=== PATIENT | male | born 1935 | race Asian ===

== ENCOUNTER 2016-11-24 19:30 | Emergency (ER) | payer MEDICARE ==
[2016-02-13 13:47] VITALS: BMI 19.1
[~2016-11-24 19:30] MED LIST: ASPIRIN325 MG PO; BISCODYL PO; CASODEX50 MG PO; COLACE100 MG PO; CORDARONE200 MG PO; FLOMAX0.4 MG PO; LANOXIN125 MCG PO; MELATONIN 3 MG1 TAB PO; NICODERM C1 PATCH .1 TRANSDERM; REMERON15 MG PO; ULTRAM50 MG PO
== END 2016-11-24 22:16 | disposition home or self-care (01) ==
LOC: D.ER 19:30
DX: S41.111A Laceration without foreign body of right upper arm, initial encounter (principal); W19.XXXA Unspecified fall, initial encounter; Y93.89 Activity, other specified; Y92.122 Bedroom in nursing home as the place of occurrence of the external cause; S00.03XA Contusion of scalp, initial encounter; S40.811A Abrasion of right upper arm, initial encounter; R41.82 Altered mental status, unspecified; Z86.73 Personal history of transient ischemic attack (TIA), and cerebral infarction without residual deficits; Z85.46 Personal history of malignant neoplasm of prostate; I95.9 Hypotension, unspecified; I44.0 Atrioventricular block, first degree; I45.10 Unspecified right bundle-branch block

== ENCOUNTER → 2017-02-11 13:42 | Outpatient (CLI) | payer MEDICARE ==
[2016-02-13 13:47] VITALS: BMI 19.1
== END | disposition home or self-care (01) ==
LOC: D.CT 13:42
DX: S80.922A Unspecified superficial injury of left lower leg, initial encounter (principal); S80.921A Unspecified superficial injury of right lower leg, initial encounter

== ENCOUNTER 2017-02-16 15:07 | Inpatient (IN) | payer MEDICARE ==
[~2017-02-16] VITALS: Ht 172.7 cm; Wt 57.7 kg
--- NOTE | ~2017-02-16 | HEMODYNAMI ---
PATIENT:LAMBERTO MORA MEDICAL RECORD: [id number] : 39 LOCATION:[facility] ADMISSION DATE: 02/16/17 Generatedon:02/17/201717:43 Patient name: LAMBERTO MORA Patient #: [id number] SSN : : 1935 Date of study: 02/17/2017 Page: Of Hemodynamic Procedure Report Patient Data Patient Demographics Procedure consent was obtained First Name: LAMBERTO Gender: Male Last Name: MORGAN : 1935 Patient #: [id number] Age: 82 year(s) Race: Additional ID: [id number] Contact details [address]: [address] [place] [address] State: [place] City: [place] Zip code: [address] Admission Admission Data Admission Date: 02/16/2017 Admission Time: 15:07 Room #: D.2203 Procedure Procedure Types Cath Procedure Peripheral Cath Diagnostic Procedure Miscellaneous Procedure Description Procedure Date Procedure Date: 02/17/2017 Procedure Start Time: 15:05 Procedure Staff Name Function Devon Frazier RT Scrub Devon Frazier RT Monitor Jose Antonio Christy MD Performing Physician Margarita Torres RN Nurse Sheryl Gooden RT Monitor Procedure Data Cath Procedure Fluoroscopy Diagnostic fluoroscopy Total fluoroscopy Time: time: 32.1 min 32.1 min Diagnostic fluoroscopy Total fluoroscopy dose: 196 dose: 196 mGy mGy Contrast Material Contrast Material Type Amount (ml) Isovue 300 85 Entry Location Entry Primary Successful Side Size Upsize 1 Upsize Entry Closure Bowden ccessful Closure Location (Fr) (Fr) 2 (Fr) Remarks Device Remarks Femoral Right 5 Fr 6 Fr artery Mid-Length Femoral Left Exoseal artery Diagnostic catheters Device Type Used For End Catheter Placement Diagnostic 5Fr IMT Catheter Procedure Medications Medication Administration Route Dosage Fentanyl I.V. 50 mcg Fentanyl I.V. 50 mcg Versed I.V. 1 mg Versed I.V. 1 mg Fentanyl I.V. 50 mcg Fentanyl I.V. 50 mcg Heparin Bolus I.V. 3000 units Versed I.V. 1 mg Nitroglycerin IC/IA I.A. 300 mcg Fentanyl I.V. 50 mcg Versed I.V. 1 mg Heparin Bolus I.V. 2000 units Hydralizine I.V. 10 mg Fentanyl I.V. 50 mcg Hemodynamics Rest Heart Rate: 65 (bpm) Snapshots Pre Cath Intra NCS Post Cath Vital Signs Time Heart Resp SPO2 NIBP (mmHg) Rhythm Pain Status Sedation Rate (ipm) (%) Level (bpm) 14:45:35 72 14 98 148/73(118) NSR 5 (11) , 10(A) Very distressing 14:52:47 66 15 97 160/71(116) NSR 5 (11) , 10(A) Very distressing 14:57:07 67 10 98 152/67(114) NSR 5 (11) , 10(A) Very distressing 15:01:26 66 11 98 152/67(117) NSR 5 (11) , 10(A) Very distressing 15:05:44 65 14 98 155/68(121) NSR 4 (11) , 10(A) Distressing 15:10:01 67 18 98 159/70(120) NSR 0 (11) , No 9(A) pain 15:14:22 67 16 99 171/67(118) NSR 0 (11) , No 9(A) pain 15:18:42 70 16 96 159/80(127) NSR 0 (11) , No 9(A) pain 15:23:41 70 14 96 Measuring NSR 0 (11) , No 9(A) pain 15:23:59 71 13 98 191/87(138) NSR 0 (11) , No 9(A) pain 15:28:27 72 13 96 193/80(133) NSR 0 (11) , No 9(A) pain 15:32:52 93 13 97 201/92(133) NSR 0 (11) , No 9(A) pain 15:37:18 77 12 99 191/85(130) NSR 0 (11) , No 9(A) pain 15:41:46 76 13 96 177/79(130) NSR 0 (11) , No 9(A) pain 15:46:08 79 13 97 190/82(123) NSR 0 (11) , No 9(A) pain 15:50:35 79 14 98 175/84(120) NSR 0 (11) , No 9(A) pain 15:54:55 120 14 99 180/85(130) NSR 0 (11) , No 9(A) pain 15:59:17 108 18 98 182/87(128) NSR 0 (11) , No 9(A) pain 16:03:39 89 18 98 182/86(151) NSR 0 (11) , No 9(A) pain 16:08:02 95 15 99 177/83(141) NSR 0 (11) , No 9(A) pain 16:12:24 94 18 98 178/81(143) NSR 0 (11) , No 9(A) pain 16:16:46 93 13 98 181/84(140) NSR 0 (11) , No 9(A) pain 16:21:06 109 18 98 169/90(123) NSR 0 (11) , No 9(A) pain 16:25:22 99 15 97 161/94(120) NSR 0 (11) , No 9(A) pain 16:29:34 100 14 96 175/93(127) NSR 0 (11) , No 9(A) pain 16:33:54 98 15 94 167/88(128) NSR 0 (11) , No 9(A) pain 16:38:08 118 15 96 186/92(132) NSR 0 (11) , No 9(A) pain 16:42:32 89 14 94 179/86(136) NSR 0 (11) , No 9(A) pain 16:46:50 93 14 91 195/98(137) NSR 0 (11) , No 9(A) pain 16:51:17 91 15 91 177/90(131) NSR 0 (11) , No 9(A) pain 16:55:37 104 13 93 187/87(131) NSR 0 (11) , No 9(A) pain 17:00:01 105 11 91 182/92(138) NSR 0 (11) , No 9(A) pain 17:04:23 92 14 88 175/90(135) NSR 0 (11) , No 9(A) pain 17:08:43 90 17 86 181/84(122) NSR 0 (11) , No 9(A) pain 17:13:05 89 13 94 184/88(156) NSR 0 (11) , No 9(A) pain 17:17:27 91 14 96 177/93(133) NSR 0 (11) , No 9(A) pain 17:21:46 90 12 95 188/95(126) NSR 0 (11) , No 9(A) pain 17:26:08 90 12 93 177/94(134) NSR 0 (11) , No 9(A) pain 17:30:28 93 14 95 177/86(129) NSR 0 (11) , No 9(A) pain 17:34:50 104 14 96 166/87(127) NSR 0 (11) , No 9(A) pain 17:39:06 122 10 98 167/87(137) NSR 0 (11) , No 9(A) pain Medications Time Medication Route Dose Verified Delivered Reason Notes Ef fectiveness by by 14:45:17 Fentanyl I.V. 50 Margarita Margarita for pain mcg Melissa Torres RN RN 15:00:33 Fentanyl I.V. 50 Margarita Margarita for sedation mcg Melissa Torres RN RN 15:00:43 Versed I.V. 1 mg Margarita Margarita for sedation Melissa Torres RN RN 15:05:57 Versed I.V. 1 mg Margarita Margarita for sedation Melissa Torres RN RN 15:15:55 Fentanyl I.V. 50 Margarita Margarita for sedation mcg Melissa Torres RN RN 15:20:13 Heparin Bolus I.V. 3000 Margarita Margarita for units Melissa tavares RN RN 15:25:48 Versed I.V. 1 mg Margarita Jose Antonio for sedation Melissa Christy RN, MD 15:25:51 Fentanyl I.V. 50 Margarita Margarita for sedation mcg Melissa Torres RN RN 16:05:42 Versed I.V. 1 mg Margarita Margarita for sedation Melissa Torres RN RN 16:19:31 Nitroglycerin I.A. 300 Margarita Jose Antonio IC/IA mcg Melissa Christy RN, MD 16:40:05 Fentanyl I.V. 50 Margarita Jose Antonio for sedation mcg Melissa Christy RN, MD 16:45:59 Heparin Bolus I.V. 2000 Margarita Jose Antonio for units Melissa Christy anticoagulation RANGEL JAY 16:50:16 Fentanyl I.V. 50 Margarita Margarita for sedation mcg Melissa Torres RN, RN 17:29:07 Hydralizine I.V. 10 mg Margarita Margarita for elevated Melissa Torres blood pressure RN microarray operations vice president Log Time Note 14:24:07 Devon Frazier RT (R) (CV) sent for patient. Start room use. 14:24:26 Time tracking: Regular hours 14:24:31 Plan of Care:Hemodynamics will remain stable., Cardiac rhythm will remain stable., Comfort level will be maintained., Respiratory function will remain adequate., Patient/ family verbilizes understanding of procedure., Procedure tolerated without complication., Recovers from procedure without complications.. 14:24:39 Patient received from Med/Surg to IR Alert and oriented. Tansferred to table in Supine position. 14:24:40 Correct patient and procedure confirmed by team. 14:24:42 Signed procedure consent form obtained from patient. 14:24:43 ECG and BP/O2 sat monitors applied to patient. 14:24:44 - 14:24:44 Full Disclosure recording started 14:24:47 H&P Date Dictated: 02/17/2017 H&P Addendum completed by physician on day of procedure. (MUST COMPLETE FOR ALL OUTPATIENTS). 14:24:48 Pre-procedure instructions explained to patient. 14:24:49 Pre-op teaching completed and patient verbalized understanding. 14:24:50 Family in waiting room. 14:24:52 Patient NPO since Midnight. 14:24:56 Is the patient allergic to Iodine/contrast media? No. 14:24:58 Is patient on blood thinner?No 14:24:59 Patient diabetic? No. 14:25:00 - 14:25:01 ----Pre-sedation anethsthesia assessment.---- 14:25:05 Previous problem with sedation/anesthesia? No ? 14:25:06 Snore? Yes 14:25:07 Sleep apnea? Yes 14:25:09 Deviated septum? No 14:25:11 Opens mouth fully? Yes 14:25:13 Sticks out tongue? Yes 14:25:18 Airway obstruction? No ? 14:25:20 Dentures? No ? 14:25:24 Use device set IR Diagnostic 14:25:26 Acist Syringe opened to sterile field. 14:25:27 Bag Decanter opened to sterile field. 14:25:27 Acist Manifold opened to sterile field. 14:25:27 Acist Hand Control opened to sterile field. 14:25:28 Sterile Angiographic Pack opened to sterile field. 14:36:49 Pre procedure: right dorsailis pedis pulse Doppler 14:36:56 Patient pain scale 6/10 no pain. 14:37:02 Pre procedure: left dorsailis pedis pulse Doppler 14:37:18 Pre procedure: right posterior tibial pulse Doppler 14:37:28 Pre procedure: left posterior tibial pulse None 14:37:37 IV patent on arrival in left forearm with 0.9% NaCl at [facility]. 14:37:38 Alarms reviewed by R. N. 14:37:38 Sharps counted by scrub and verified by R.N. 14:37:42 Bilateral groins area was prepped with chlora-prep and draped in steril e fashion 14:45:17 Fentanyl 50 mcg I.V. was administered by Margarita Torres RN; for pain; 14:50:19 Cook CERVANTES 260 guide wire opened to sterile field. 14:52:16 Vital chart was started 14:52:17 Baseline sample Acquired. 14:52:20 Rhythm: sinus rhythm 14:57:01 --------ALL STOP TIME OUT------ 14:57:01 Physician arrived 14:57:02 Final Timeout: patient, procedure, and site verified with staff and physician. All members of the team are in agreement. 14:57:04 Bilateral groins site verified by team. 14:57:07 Physical assessment completed. ASA score P 3 - A patient with severe systemic disease as per Jose Antonio Christy MD. 14:57:11 Sedation plan: IV Moderate Sedation Versed, Fentanyl 15:00:33 Fentanyl 50 mcg I.V. was administered by Margarita Torres RN; for sedation; 15:00:43 Versed 1 mg I.V. was administered by Margarita Torres RN; for sedation; 15:05:22 Procedure started. 15:05:28 Local anesthetic to left femerol artery with Lidocaine 1% by Jose Antonio Christy MD.INITIAL ACCESS ONLY 15:05:57 Versed 1 mg I.V. was administered by Margarita Torres RN; for sedation; 15:10:17 Terumo 5Fr [place] Sheath opened to sterile field. 15:10:18 Cook BENTSON 145cm guide wire opened to sterile field. 15:10:19 Micropuncture VSI 4FR kit opened to sterile field. 15:10:22 A Diagnostic 5Fr IMT Catheter was advanced over the wire and used for . 15:10:[address] 260 .035 glide wire opened to sterile field. 15:11:29 Terumo 6Fr [place] Destination Sheath opened to sterile field. 15:11:39 A 5 Fr sheath was inserted into the Right Femoral artery 15:14:10 Sheath upsized to a 6 Fr Mid-Length. 15:14:41 CXI SUPPORT .035 135 CM STR catheter opened to sterile field. 15:15:55 Fentanyl 50 mcg I.V. was administered by Margarita Torres RN; for sedation; 15:20:13 Heparin Bolus 3000 units I.V. was administered by Margarita Torres RN; for anticoagulation; 15:25:48 Versed 1 mg I.V. was administered by Jose Antonio Christy MD; for sedation; 15:25:51 Fentanyl 50 mcg I.V. was administered by Margarita Torres RN; for sedation; 15:27:41 Terumo ANGLE 260cm glide wire opened to sterile field. 15:34:51 [place] Sci Choice PT Floppy Straight 300cm 0.014 g opened to sterile field. 15:41:21 CSI [place] wire 300cm opened to sterile field. 15:41:31 CXI SUPPORT .018 150CM STR catheter opened to sterile field. 15:56:43 Inflation number: 1 A Saber 2.5 X 200 X 150 balloon was prepped and advanced across the Undefined lesion 1 on undefined graft 1, then inflated to 18 MANISH for 0:11 (min:sec). 15:57:07 BasixTOUCH Inflation Syringe opened to sterile field. 16:00:56 Copilot Bleedback Control Valve opened to sterile field. 16:05:42 Versed 1 mg I.V. was administered by Margarita Torres RN; for sedation; 16:07:56 Inflation number: 1 A Saber 2 x 150 x150 balloon was prepped and advanced across the Undefined lesion 2 on undefined graft 2, then inflated to 15 MANISH for 0:15 (min:sec). 16:10:32 Turbohawk 1 Large Atherectomy catheter opened to sterile field. 16:19:31 Nitroglycerin IC/IA 300 mcg I.A. was administered by Jose Antonio Christy MD; ; 16:40:05 Fentanyl 50 mcg I.V. was administered by Jose Antonio Christy MD; for sedation; 16:45:59 Heparin Bolus 2000 units I.V. was administered by Jose Antonio Christy MD; fo r anticoagulation; 16:48:23 Inflation number: 1 A IN.PACT Admiral 5 x 150 balloon was prepped and advanced across the Undefined lesion 3 on undefined graft 3, then inflated to 6 MANISH for 3:29 (min:sec). 16:50:16 Fentanyl 50 mcg I.V. was administered by Margarita Torres RN; for sedation; 16:55:08 Inflation number: 1 A IN.PACT Admiral 6 x 150 balloon was prepped and advanced across the Undefined lesion 4 on undefined graft 4, then inflated to 14 MANISH for 3:30 (min:sec). 17:00:37 Inflation number: 1 A IN.PACT Admiral 6.0 x 80 x 135 DCB Balloon was prepped and advanced across the Undefined lesion 5 on undefined graft 5, then inflated to 14 MANISH for 2:51 (min:sec). 17:01:31 St [place] 6Fr sheath opened to sterile field. 17:01:54 Cordis 6Fr Exoseal opened to sterile field. 17:17:51 Cordis SMART 6 X 40 X 120 stent was deployed across Undefined lesion 4 on undefined graft 4 . 17:18:45 Cordis SMART 6 X 40 X 120 stent was deployed across Undefined lesion 5 on undefined graft 5 . 17:24:21 Sheath removed intact; hemostasis achieved with Exoseal to the Left Femoral artery. 17:24:21 A sheath was inserted into the Left Femoral artery 17:24:37 Procedure ended.(Physican Out) 17:24:44 Fluoroscopy time 32.10 minutes. 17:24:50 Fluoroscopy dose: 196 mGy 17:24:50 Flurop Dose total: 196 17:25:11 Contrast amount:Isovue 300 85ml. 17:25:13 Sharps counted by scrub and verified by R.N. 17:25:16 Procedure and supply charges have been captured, reviewed, submitted an d are correct. 17:29:07 Hydralizine 10 mg I.V. was administered by Margarita Torres RN; for elevated blood pressure; 17:41:41 Full Disclosure recording stopped Intervention Summary Intervention Notes Time ActionType Lesion and Equipment Action# Pressure Duration Attributes Used 15:56:43 Inflate Undefined Saber 2.5 1 18 00:11 balloon lesion 1 on X 200 X undefined 150 graft 1 balloon 16:07:56 Inflate Undefined Saber 2 x 1 15 00:15 balloon lesion 2 on 150 x150 undefined balloon graft 2 16:48:23 Inflate Undefined IN.PACT 1 6 03:29 balloon lesion 3 on Admiral 5 undefined x 150 graft 3 balloon 16:55:08 Inflate Undefined IN.PACT 1 14 03:30 balloon lesion 4 on Admiral 6 undefined x 150 graft 4 balloon 17:00:37 Inflate Undefined IN.PACT 1 14 02:51 balloon lesion 5 on Admiral undefined 6.0 x 80 graft 5 x 135 DCB Balloon 17:17:51 Deploy self Undefined Cordis 1 expanding lesion 4 on SMART 6 X stent undefined 40 X 120 graft 4 stent 17:18:45 Deploy self Undefined Cordis 1 expanding lesion 5 on SMART 6 X stent undefined 40 X 120 graft 5 stent Device Usage Item Name Manufacture Quantity Catalog Number Hospital Part Current Minimal Lot# / Charge Number Stock Stock Serial# Code Acist Syringe Acist Medical 1 76438 017991 801939 700881 20 Systems Inc Acist Hand Acist Medical 1 93638 080256 401284 066248 5 Control Systems Inc Acist Acist Medical 1 61748 562669 200149 432781 5 Manifold Systems Inc Bag Decanter Microtek 1 2002S 1929453 25435 817894 5 Medical Inc. Sterile Cardinal 1 [id number] 009251 972410 5 Angiographic Health Pack Terumo 5Fr Terumo 1 EZH907 288195 640573 876809 40 [place] Sheath Cook [facility] 1 R05346 524416 914527 5 5522419 145cm guide wire [facility] 1 B98706 800337 710712 5 [id number] 260 guide wire Micropuncture VSI VASCULAR 1 7266V 083604 352198 5 VSI 4FR kit SOLUTIONS Diagnostic [place] 1 [id number] 663121 752813 98200 5 [id number] 5Fr IMT Scientific Catheter [facility] 1 R93254 540895 635497 5 [id number] ROADRUNNER 260 .035 glide wire Terumo 6Fr Terumo 1 RSR01 049429 84389 158066 5 [place] Destination Sheath CXI SUPPORT [facility] 1 O11191 334972 555565 5 4600602 .035 135 CM STR catheter Terumo ANGLE Terumo 1 PF3541 740957 789326 864684 5 260cm glide wire [place] Sci [place] 1 [id number] 135759 252928 625015 5 Choice PT Scientific Floppy Straight 300cm 0.014 g CSI [place] [facility] 1 [id number] 568054 812380 1 [id number] wire 300cm systems CXI SUPPORT [facility] 1 B93861 501189 872712 5 [id number] .018 150CM STR catheter Saber 2.5 X Cardinal 1 [id number] 410368 243893 5 200 X 150 Health balloon [facility] 1 QF0686 908417 016232 294488 5 Inflation Syringe Copilot [place] 1 1509579 709627 588933 704751 5 Bleedback Vascular Control Valve Saber 2 x 150 Cardinal 1 [id number] 140954 029009 5 x150 balloon Health T[place] 1 Ev3 1 H1-M 789088 843315 909070 5 Large Atherectomy catheter IN.PACT Medtronic 1 [id number] 976173 9213703 283128 5 [id number] Admiral 5 x 150 balloon IN.PACT Medtronic 1 [id number] 092983 5269252 713561 5 [id number] Admiral 6 x 150 balloon IN.PACT Medtronic 1 [id number] 317111 112616 604003 5 [id number] Admiral 6.0 x 80 x [address] [place] [address] [facility] [place] 1 702240 750408 257920 5 0501447 sheath Cordis 6Fr Cardinal 1 EX600 727169 225269 153753 10 [id number] [facility] 2GO Mobile Solutions Cordis SMART Cardinal 2 [id number] 022920 966655 0 [id number] 6 X 40 X 120 Health [id number] stent Signature Audit [place] Stage Time Signature Unsigned Intra-Procedure 02/17/2017 Sheryl Gooden 5:43:22 PM RT(R) Signatures Monitor : Devon Signature : Freddie RT Date : Time : Monitor : Sheryl Gooden RT Signature : Date : Time : [address] [address]
--- NOTE | 2017-02-16 15:45 | NUR ---
PT AOX1 RESP EVEN AND NONLABORED PT C/O PAIN OF 9 IN RIGHT ANKLE AT THIS TIME. PT AT BEDSIDE. SRX2 BED AT LOWEST SETTING CALL LIGHT WITHIN REACH WILL CONTINUE TO MONITOR
[2017-02-16 15:55] VITALS: BP 150/94; BMI 19.2
[2017-02-16] MEDS ORDERED: SYNTHROID25 MCG PO (16:00)
[2017-02-16] MEDS ORDERED: MEGACE400 MG/10 PO (16:00)
[2017-02-16] MEDS ORDERED: MIRALAX17 GM PO (16:02)
[2017-02-16] MEDS ORDERED: MULTIPLE VITAMI1 TA1 PO (16:02)
[2017-02-16] MEDS ORDERED: COLACE100 MG PO (16:06)
[2017-02-16] MEDS ORDERED: ULTRAM50 MG PO (16:08)
[2017-02-16 17:05] LABS: APPEARANCE CLEAR (CLEAR); BILIRUBIN NEGATIVE (NEGATIVE); COLOR DK YELLOW (YELLOW); GLUCOSE NEGATIVE (NEGATIVE); KETONE NEGATIVE (NEGATIVE); LEUKOCYTE ESTERASE TRACE (NEGATIVE); NITRITE POSITIVE (NEGATIVE); PROTEIN NEGATIVE (NEGATIVE); SPECIFIC GRAVITY 1.015 (1.005-1.020); UROBILINOGEN NORMAL (NORMAL)
[2017-02-16 17:06] LABS: BACTERIA MANY /hpf (NONE SEEN)
[2017-02-16 17:15] LABS: BASOPHILS 0.1 % (0-2); EOSINOPHILS 0.8 % (0-7); HEMATOCRIT 31.2 % (42.0-54.0); HEMOGLOBIN 9.7 g/dL (13.5-17.5); IMMATURE GRANULOCYTES 0.5 % (0-5); LYMPHOCYTES 8.3 % (15-50); MCH 29.8 pg (26.0-34.0); MCHC 31.1 g/dL (31.0-37.0); MEAN PLATELET VOLUME 8.7 fL (7.4-10.4); NEUTROPHILS 85.3 % (40-80); RBC 3.25 10x6/uL (4.20-6.10); WBC 15.5 10x3/uL (4.8-10.8)
[2017-02-16 17:28] LABS: PLATELET COUNT 333 10x3/uL (130-400)
[2017-02-16 17:30] LABS: ALBUMIN 2.8 g/dL (3.4-5.0); ANION GAP 14.5 mmol/L (8-16); BILIRUBIN - TOTAL 0.35 mg/dL (0.2-1.3); CARBON DIOXIDE 23.6 mmol/L (21.0-32.0); CREATININE - SERUM 1.2 mg/dL (0.6-1.3); POTASSIUM - SERUM 4.1 mmol/L (3.5-5.1); PROTEIN - SERUM 6.8 g/dL (6.4-8.2)
[2017-02-16 18:11] LABS: INR 1.08 (0.85-1.17); PROTIME 13.9 SECONDS (11.6-15.0)
[2017-02-16 19:00] VITALS: BP 123/60
--- NOTE | 2017-02-16 19:33 | NUR ---
PT HAS A 24 G. IV TO LEFT WRIST PATENT AND INTACT AT THIS TIME
--- NOTE | 2017-02-16 20:41 | NUR ---
SHIFT ASSESSMENT COMPLETED. NIGHT MEDS GIVEN WITH NO PROBLEMS. NO NEEDS ARE VOICED. WILL MONITOR. SIDE RAILS X 2. BED LOW. BED ALARM ON. CALL LIGHT IN REACH.
--- NOTE | 2017-02-16 20:41 | NUR ---
RECIEVED SHIFT REPORT. PT IS LYING IN BED. PT IS ALERT TO SELF ONLY AT THIS TIME. IV IS PATENT AND SALINE LOC AT THIS TIME. SCD'S PLACED ON. DRESSING TO RIGHT FOOT C/D/I. PT STATES PAIN IS 5/10. NO NEEDS ARE VERBALIZED AT THIS TIME. WILL CONTINUE TO MONITOR. SIDE RAILS ARE UP X 2. BED IS IN LOWEST POSITION. BED ALARM IS ON FOR SAFETY. CALL LIGHT IS WITHIN REACH.
[2017-02-17] VITALS: BP 148/64; BP 153/61
[2017-02-17 04:00] VITALS: BP 149/66
[2017-02-17 05:48] LABS: BASOPHILS 0.2 % (0-2); HEMOGLOBIN 8.9 g/dL (13.5-17.5); IMMATURE GRANULOCYTES 0.2 % (0-5); LYMPHOCYTES 9.7 % (15-50); MCH 30.4 pg (26.0-34.0); MCHC 31.8 g/dL (31.0-37.0); MCV 95.6 fL (80.0-100.0); MEAN PLATELET VOLUME 8.6 fL (7.4-10.4); NEUTROPHILS 84.9 % (40-80); PLATELET COUNT 309 10x3/uL (130-400); RBC 2.93 10x6/uL (4.20-6.10); RDW 16.1 % (11.5-14.5); WBC 13.4 10x3/uL (4.8-10.8)
[2017-02-17 06:09] LABS: ALBUMIN 2.3 g/dL (3.4-5.0); ALKALINE PHOSPHATASE 85 U/L (46-116); ALT (SGPT) 14 U/L (10-68); BILIRUBIN - TOTAL 0.38 mg/dL (0.2-1.3); CALC OSMOLALITY 276 mosm/kg (275-300); CALCIUM 7.9 mg/dL (8.5-10.1); CHLORIDE - SERUM 105 mmol/L (98-107); GLUCOSE 89 mg/dL (74-106); POTASSIUM - SERUM 3.9 mmol/L (3.5-5.1); PROTEIN - SERUM 6.4 g/dL (6.4-8.2); SODIUM 138 mmol/L (136-145); UREA NITROGEN 17 mg/dL (7-18); eGFR NON AFRICAN AMERICAN 76 mL/min (90-120)
--- NOTE | 2017-02-17 07:43 | NUR ---
PT CONFUSED AT TIMES IV TO LEFT WRIST PATENT AND INTACT AT THIS TIME SRX2 BED AT LOWEST SETTING CALL LIGHT WITHIN REACH WILL CONTINUE TO MONITOR
[2017-02-17 08:00] VITALS: BP 139/52
[2017-02-17 13:08] VITALS: Ht 172.7 cm; Wt 57.7 kg
--- NOTE | 2017-02-17 18:22 | NUR ---
RECEIVED PT FROM SPECIALS WITH PT TRYING TO CLIMB OUT OF BED. PT INSTRUCTED TO LAY FLAT DRESSING TO LEFT GROIN CLEAN DRY AND INTACT AT THIS TIME WILL MONITOR
--- NOTE | 2017-02-17 19:25 | NUR ---
RECIEVED SHIFT REPORT. PT IS LYING FLAT IN BED. PT IS CONFUSED AT THIS TIME. SCD'S ARE OFF AT THIS TIME. DRESSING TO LEFT GROIN C/D/I. IV IS PATENT AND FLUIDS ARE RUNNING PER ORDER. PT SHOWS SIGNS OF PAIN 02/10. IS AT THE BEDSIDE. WILL CONTINUE TO MONITOR. SIDE RAILS ARE UP X 3. BED IS IN LOWEST POSITION. BED ALARM IS ON FOR SAFETY. CALL LIGHT IS WITHIN REACH.
[2017-02-17 20:00] VITALS: BP 166/71
--- NOTE | 2017-02-17 21:53 | NUR ---
SHIFT ASSESSMENT COMPLETED. NIGHT MEDS GIVEN CRUSHED WITH ASPIRATION PRECAUTIONS IN PLACE WITH NO PROBLEMS. ADMINISTERED PRESCRIBED PRN NORCO 2 TABS PER ORDER FOR PAIN 02/10 LYN PICHARDO. VISITOR IS AT THE BEDSIDE. WILL MONITOR. SIDE RAILS X 3. BED LOW. BED ALARM ON. CALL LIGHT IN REACH.
[2017-02-18] VITALS: BP 186/69
--- NOTE | 2017-02-18 00:50 | NUR ---
LYING IN BED,WITHOUT DISTRESS.FALL PREVENTION IN PLACE WITH ALARM ON AND DOOR OPEN
--- NOTE | 2017-02-18 02:59 | NUR ---
STILL YELLING OUT IN PAIN.STATES HE HAS TO TINCKLE AND IT HURT. 178ML WITH BLADDER SCAN.ALSO BED CHANGE AT THIS TIME PT INCONTINENT TO URINE.MEDS ORDERED PER MAR FOR PAIN.FALL PREVENTION REMAINS IN PLACE WITH DOOR OPEN.
[2017-02-18 04:00] VITALS: BP 148/67
[2017-02-18 05:59] LABS: BASOPHILS 0.2 % (0-2); EOSINOPHILS 0.1 % (0-7); IMMATURE GRANULOCYTES 0.6 % (0-5); LYMPHOCYTES 4.3 % (15-50); MCH 29.5 pg (26.0-34.0); MCV 95.2 fL (80.0-100.0); MEAN PLATELET VOLUME 8.7 fL (7.4-10.4); MONOCYTES 3.5 % (2-11); NEUTROPHILS 91.3 % (40-80); PLATELET COUNT 312 10x3/uL (130-400); WBC 10.7 10x3/uL (4.8-10.8)
[2017-02-18 06:02] LABS: HEMATOCRIT 35.5 % (42.0-54.0); RBC 3.73 10x6/uL (4.20-6.10)
[2017-02-18 06:12] LABS: ALBUMIN 2.6 g/dL (3.4-5.0); ANION GAP 13.4 mmol/L (8-16); BILIRUBIN - TOTAL 0.85 mg/dL (0.2-1.3); CALCIUM 8.4 mg/dL (8.5-10.1); CARBON DIOXIDE 23.8 mmol/L (21.0-32.0); POTASSIUM - SERUM 4.2 mmol/L (3.5-5.1); PROTEIN - SERUM 7.2 g/dL (6.4-8.2)
--- NOTE | 2017-02-18 06:26 | NUR ---
STILL AWAKE,HASNT SLEPT ALL NIGHT.PT HAS BEEN YELLING OUT MOST OF NIGHT FOR HIS .STILL COMPLAINS OF PAIN TO HIS RIGHT ANKLE AND HIS GROIN. MEDS ORDERED PER MAR.CONT PLAN OF CARE
[2017-02-18 06:34] LABS: CREATININE - SERUM 1.3 mg/dL (0.6-1.3)
--- NOTE | 2017-02-18 07:30 | NUR ---
RECIEVED PT DURING WALKING ROUNDS, PT IN BED WITH COMPLAINTS OF PAIN OF A 8 ON A SCALE OF 1-10. NO MEDICATION TO BE GIVEN AT THIS TIME. ASSESSMENT DONE PER FLOWSHEET. BED IN LOW POSITION AND CALL LIGHT WITHIN REACH. WILL CONTINUE TO MONITOR.
[2017-02-18 09:35] VITALS: BP 119/63
--- NOTE | 2017-02-18 11:15 | NUR ---
MORPHINE GIVEN AT THIS TIME PER ORDER, PT PEEING SMALL AMOUNTS UP TO THIS POINT, WAS INSTRUCTED BY NURSE PRACTIONIER TO BLADDER SCAN PT AND PLACE CARBAJAL IF PT IS EXPERIENCING RETENTION. WILL CONTINUE PLAN OF CARE.
[2017-02-18 12:46] VITALS: BP 120/64
--- NOTE | 2017-02-18 13:45 | NUR ---
BLADDER SCANNED AT THIS TIME, READING WAS 999+, COUDUIT CATH PLACED AT THIS TIME USING STERILE TECHNIQUE. PT STATED HE FELT RELIEF. BED IN LOW POSITION AND CALL LIGHT WITHIN REACH. WILL CONTINUE TO MONITOR.
[2017-02-18 16:29] VITALS: BP 166/68
--- NOTE | 2017-02-18 19:50 | NUR ---
PATIENT RESTING IN BED WITH EYES CLOSED AND NO VISIBLE SIGNS OF DISTRESS. BED IN LOWEST POSITION AND CALL LIGHT WITHIN REACH. BED IN LOWEST POSITION, CALL LIGHT WITHIN REACH, AND BED ALARM ON.
[2017-02-18 20:00] VITALS: BP 150/71
[2017-02-19 00:10] VITALS: BP 125/50
[2017-02-19 04:00] VITALS: BP 104/52
--- NOTE | 2017-02-19 07:30 | NUR ---
RECIEVED PT DURING WALKING ROUNDS. PT IN BED WITH COMPLAINTS OF PAIN OF A 10 ON A SCALE OF 1-10. MEDICATION TO BE GIVEN PER ORDER. ASSESSMENT DONE PER FLOWSHEET. BED IN LOW POSITION AND CALL LIGHT WITHIN REACH. WILL CONTINUE TO MONITOR.
[2017-02-19 09:10] LABS: BASOPHILS 0.1 % (0-2); EOSINOPHILS 0.2 % (0-7); HEMATOCRIT 32.4 % (42.0-54.0); IMMATURE GRANULOCYTES 0.3 % (0-5); LYMPHOCYTES 9.9 % (15-50); MCH 29.5 pg (26.0-34.0); MCHC 30.9 g/dL (31.0-37.0); MCV 95.6 fL (80.0-100.0); MEAN PLATELET VOLUME 9.1 fL (7.4-10.4); MONOCYTES 5.7 % (2-11); NEUTROPHILS 83.8 % (40-80); PLATELET COUNT 254 10x3/uL (130-400); RBC 3.39 10x6/uL (4.20-6.10); RDW 16.1 % (11.5-14.5)
[2017-02-19 10:19] VITALS: BP 152/70
--- NOTE | 2017-02-19 11:00 | NUR ---
HEEL PROTECTOR PLACED AT THIS TIME PER ORDER
[2017-02-19 11:54] LABS: ANION GAP 14.9 mmol/L (8-16); CALCIUM 8.2 mg/dL (8.5-10.1); CARBON DIOXIDE 24.7 mmol/L (21.0-32.0); CREATININE - SERUM 1.2 mg/dL (0.6-1.3); POTASSIUM - SERUM 4.6 mmol/L (3.5-5.1)
--- NOTE | 2017-02-19 12:18 | HP ---
PATIENT: LAMBERTO MORA MEDICAL RECORD: [id number] ACCOUNT: [id number] LOCATION:D.[facility] [address] : 37 ADMISSION DATE: 02/16/17 HISTORY AND PHYSICAL EXAMINATION LAMBERTO Winkler (82yo, M) ID# [id number]. Date/Time02/16/2017 02:[id number] Dept.NPP_[facility] ClinicProviAntoinette PERES MDInsuranceMed Primary[place] Insurance # : [id number] Referring Provider Name : RAMON OCONNELL Employer Name : RETIRED Med Secondary[place] Insurance # : [id number] Employer Name : RETIRED Med Contracts: [facility] Insurance # : [id number] Referring Provider Name : RAMON OCONNELL Employer Name : RETIRED Prescription: CMX - Member is eligible. Prescription: [employer] [employer] - Member is eligible. Chief Complaint PVD - peripheral vascular disease non healing wounds to RLE, buckle inspector recommended CV evaluation for vascular disease Patient's Care Team Referring Provider (): RAMON OCONNELL: [address], [place] [address], , Vitals BP:118/64 sitting L arm 02/16/2017 02:10 pmBP Cuff Size:adult 02/16/2017 02:10 pmHR:76,reg 02/16/2017 02:10 pmHt:5 ft 8 in 02/16/2017 02:11 pmWt:25 lbs 02/16/2017 02:11 pmNotes:RLE with two existing ulcers and states two more forming 02/16/2017 02:11 pmBMI:3.8 02/16/2017 02:11 pmAllergies Reviewed Allergies ATIVANBEE VENOM PROTEIN (HONEY BEE)Medications Reviewed Medications amiodarone 200 mg /08/17 filledCaremarkaspirin 325 mg tablet Take 1 tablet(s) every day by oral route.02/11/17 enteredCindy Brownciprofloxacin 500 mg jnvecj85/07/17 filledCaremarkdigoxin 125 mcg gqcorb32/07/17 filledCaremarkDulcolax (bisacodyl) 5mg 2 tablets by mouth daily as bokmfu15/11/17 enteredCindy Brownmegestrol 400 mg/10 mL (40 mg/mL) oral /06/17 filledCaremarkmelatonin 3mg give 2 tablets as needed for jkppyvbl76/11/17 enteredCindy Brownmirtazapine 15 mg bgknui66/08/17 filledCaremarkmirtazapine 7.5 mg rlhzyz19/10/17 filledCaremarknicotine 14 mg/24 hr daily transdermal patch Apply 1 patch(es) every day by transdermal route.02/11/17 enteredCindy Brownnystatin 100,000 unit/gram topical cream08/04/16 filledCaremarkSynthroid 25 mcg tablet Take 1 tablet(s) every day by oral route.02/11/17 enteredCindy Browntamsulosin 0.4 mg qhmnrid38/08/17 filledCaremarkProblems Reviewed Problems 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 - Onset: 02/16/2017 Dementia due to Alzheimer's disease - Onset: 02/16/2017 Cerebrovascular accident - Onset: 02/16/2017 Chronic ulcer of lower extremity - Onset: 02/11/2017 Atherosclerosis of arteries of the extremities - Onset: 02/11/2017 HISTORY AND PHYSICAL [id number] LAMBERTO MORA Family History Reviewed Family History Social History Discussed Social History Cardiology Smoking Status: Former smoker High Cholesterol: Y High blood pressure: Y Exercise level: None Surgical History Reviewed Surgical History Other - PTCA/STENT Past Medical History Discussed Past Medical History Arrhythmia: Y Atrial fibrillation: Y Carotid Stenosis: Y High Blood Pressure: Y Hyperlipidemia: Y Peripheral Vascular Disease (PVD): Y Stroke: Y Thyroid Problems: Y Documents for Discussion N/A Screening None recorded. HPI Peripheral Vascular Disease Reported by patient. Location: foot; ankle Quality: aching Severity: severe Duration: has noted for months Onset/Timing: continuous Context: at rest Associated Symptoms: weakness; skin discoloration rest pain secondary to peripheral arterial disease ROS Patient reports exercise intolerance but reports no fever, no night sweats, no significant weight gain, and no significant weight loss. He reports dry eyes but reports no irritation and no vision change. He reports shortness of breath when lying down but reports no chest pain, no arm pain on exertion, no shortness of breath when walking, no palpitations, and no known heart murmur. He reports shortness of breath but reports no cough, no wheezing, and no coughing up blood. He reports muscle aches, muscle weakness, and arthralgias/joint pain but reports no back pain and no swelling in the extremities. He reports no abnormal mole, no jaundice, and no rashes; ulcers right foot. He reports sleep disturbances and restless sleep but reports no depression, feeling safe in relationship, and no alcohol abuse. He reports no difficulty hearing and no ear pain. He reports no frequ ent nosebleeds and no nose/sinus problems. He reports no sore throat, no bleeding gums, no snoring, no dry mouth, no mouth ulcers, no oral abnormalities, and no teeth problems. He reports no jugular vein distension and no swollen glands. He reports no abd o susy pain, no vomiting, normal appetite, no diarrhea, not vomiting blood, no HISTORY AND PHYSICAL [id number] SUKIGARA,SHIGEYUKI nausea, and no constipation. He reports no incontinence, no difficulty urinating, no hematuria, and no increased frequency. He reports no loss of consciousness, no weakness, no numbness, no seizures, no dizziness, and no headaches. He reports no fatigue. He reports no swollen glands and no bruising. He reports no runny nose, no sinus pressure, no itching, no hives, and no frequent sneezing. ROS as noted in the HPI Physical Exam Patient is an 82-year-old male. Constitutional: General Appearance cachectic and thin. Level of Distress chronically ill. Ambulation ambulating normally and in wheelchair. Cardiovascular: Apical Impulse not displaced or no thrill. Heart Auscultation normal s1 and s2; no murmurs, rubs, or gallops; and RRR. Arterial Pulses no abdominal aorta bruits, femoral bruits, or popliteal bruits; popliteal not palpable (bilateral) and dorsalis pedis not palpable(bilateral); and 2+ bilateral, car otid 2+ bilateral, and femoral 2+ bilateral. Edema no edema or varicosities. Lungs: Repiratory Effort no dyspnea. Percussion no dullness or flatness and hyperresonance . Auscultation no rhonchi or rales / crackles and breathing sounds normal, good air movement, CTA except as noted, and expiratory wheezing. Abdomen: Bowl Sounds normal. Inspection and Palpation no tenderness, guarding, masses, or rebound tenderness and soft and non-distended. Liver non-tender and no hepatomegaly. Spleen non-tender and no splenomegaly. Hernia none palpable. Musculoskeletal System: Gait And Stance normal gait and stance; we'll check. Digits and Nails cyanosis and abnormal nails and normal nails. Joints, Bones, and Muscles limited ROM and abnormal strength; pain and right foot. Neurologic: Cranial Nerves grossly intact. Reflexes diminished. Sensation abnormal. Lymph Nodes: Lymph Nodes no cervical LAD, supraclavicular LAD, axillary LAD, or inguinal LAD. Eyes: Lids and Conjunctivae no discharge or pallor and non-injected. Pupils PERRLA. Cornea grossly intact. EOM EOMI. Lens clear. Sclerae non-icteric. Neck: Neck no masses or enlarged lymph nodes and supple, trachea midline, and carotid bruits. Thyroid no enlargement or nodules and non-tender. Skin: Inspection and Palpation no rash, lesions, ulcers, jaundice, or abnormal nevi. Assessment / Plan severe peripheral arterial disease Rest pain secondary to atherosclerosis Nonhealing ulcers right lower extremity 1. Chronic ulcer of lower extremity L97.909: Non-pressure chronic ulcer of unspecified part of unspecified lower leg with unspecified severity 2. Dementia due to Alzheimer's disease F02.80: Dementia in other diseases classified elsewhere without behavioral disturbance HISTORY AND PHYSICAL [id number] LAMBERTO MORA 3. Cerebrovascular accident I63.9: Cerebral infarction, unspecified STROKE: CARE INSTRUCTIONS 4. 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 Oconnell Consults interventional radiology MARKELL PERES MD at 1218 CC: [id number] DICTATION DATE: 02/16/17 1400 PODIATRIC SURGEON: JENNIE 02/16/17 1511 ADM IN [facility] [address] [place] [address]
[2017-02-19 14:08] VITALS: BP 150/74
--- NOTE | 2017-02-19 16:15 | NUR ---
PT TEMP 101.7 ORALLY, PHONE CALL PLACED TO DR. COWAN AT THIS TIME, RECIEVED ORDERS FOR BLOOD CULTURES AND TYLENOL. BE RESTING IN BED, WILL CONTINUE TO MONITOR.
--- NOTE | 2017-02-19 16:50 | NUR ---
PT NPO AT THIS TIME DUE TO FAILED SWALLOW STUDY. INFORMED DR. COWAN OF THIS INFORMATION. WILL CONTINUE TO MONITOR.
[2017-02-19 17:15] VITALS: BP 134/64
--- NOTE | 2017-02-19 18:50 | NUR ---
WENT INTO PTS ROOM AT THIS TIME AND PT WAS DIAPHORETIC, CHECKED TEMP AND IT WAS 99.4. CHANGED PT AT THIS TIME, PASSED REPORT TO BASKET ASSEMBLER.
--- NOTE | 2017-02-19 19:45 | NUR ---
PATIENT RESTING IN BED WITH EYES CLOSED AND NO VISIBLE SIGNS OF DISTRESS. BED IN LOWESET POSITION, CALL LIGHT WITHIN REACH, AND BED ALARM ON.
[2017-02-19 20:00] VITALS: BP 104/62; BP 105/34
--- NOTE | 2017-02-19 20:45 | NUR ---
PATIENT RESTING IN BED WITH AT BEDSIDE. ADMINISTERED AMIODARONE CRUSHED IN JED PUDDING. PATIENT WAS ABLE TO SWALLOW MEDICATION CRUSHED. WILL CLARIFY TOMORROW IF THE DR'S WANT PO MEDS ADMINISTERED PER ORDERS.
[2017-02-20] VITALS: BP 105/61
[2017-02-20 04:00] VITALS: BP 122/25
[2017-02-20 04:54] LABS: BASOPHILS 0.1 % (0-2); EOSINOPHILS 0.3 % (0-7); HEMATOCRIT 28.1 % (42.0-54.0); HEMOGLOBIN 8.7 g/dL (13.5-17.5); IMMATURE GRANULOCYTES 0.4 % (0-5); LYMPHOCYTES 7.4 % (15-50); MCH 29.6 pg (26.0-34.0); MCV 95.6 fL (80.0-100.0); MEAN PLATELET VOLUME 8.6 fL (7.4-10.4); MONOCYTES 4.1 % (2-11); NEUTROPHILS 87.7 % (40-80); PLATELET COUNT 263 10x3/uL (130-400); RBC 2.94 10x6/uL (4.20-6.10); RDW 16.3 % (11.5-14.5); WBC 15.7 10x3/uL (4.8-10.8)
[2017-02-20 05:32] LABS: ANION GAP 13.4 mmol/L (8-16); CALCIUM 8.3 mg/dL (8.5-10.1); CARBON DIOXIDE 25.3 mmol/L (21.0-32.0); CREATININE - SERUM 1.3 mg/dL (0.6-1.3); POTASSIUM - SERUM 3.7 mmol/L (3.5-5.1)
--- NOTE | 2017-02-20 07:30 | NUR ---
RESTING QUIETLY WITH EYES CLOSED. AROUSES TO VERBAL STIMULATION. ORIENTED TO SELF ONLY. ATTEMPTS TO REORIENT WITHOUT SUCCESS. LUNGS ARE DIMINISHED ON LEFT WITH CRACKLES AND RALES ON RIGHT SIDE. OCCASSIONAL DRY COUGH NOTED. SKIN IS INTACT WITHOUT REDNESS EXCEPT WOUND TO RIGHT OUTER ANKLE. FAMILY REPORTS THIS BEING IMPROVED AT THIS TIME. PEDAL PULSE IS VERY FAINT ON RIGHT BUT CAPILLIARY REFILL IS WNL. FOOT IS WARM TO TOUCH. WILL MONITOR. NO NEEDS NOTED. IV TO LEFT SHOULDER IS PATENT WITHOUT REDNESS AT INSERTION SITE.
--- NOTE | 2017-02-20 10:08 | NUR ---
RESTING QUIETLY IN BED. NO NEEDS NOTED. FAMILY AT BEDSIDE.
[2017-02-20 10:21] VITALS: BP 119/49
[2017-02-20 12:47] VITALS: BP 143/56
[2017-02-20 15:51] VITALS: BP 131/70
[2017-02-20 20:00] VITALS: BP 107/55
--- NOTE | 2017-02-20 20:00 | NUR ---
REC'D IN BED WITH EYES CLOSED EASILY AROUSED WHEN NAME IS CALLED. RESP EVEN AND UNLABORED WITH NO DISTRESS NOTED. ASSESSMENT COMPLETED. C/L INM REACH AT BEDSIDE.
[2017-02-21] VITALS: BP 132/57
--- NOTE | 2017-02-21 00:25 | NUR ---
C/O RIGHT LEG AND FOOT PAIN WAS MEDICATED WITH MORPHINE PER ORDERS. WILL CONTINUE TO OBSERVE FOR NEEDS. C/L IN REACH AT BEDSIDE.
--- NOTE | 2017-02-21 02:00 | NUR ---
PT IN BED WITH NO DISTRESS. RESPIRATIONS ARE EVEN AND UNLABORED. SIDE RAILS X 2. BED IS LOW. CALL LIGHT IN REACH.
[2017-02-21 04:00] VITALS: BP 102/48
[2017-02-21 06:47] LABS: BASOPHILS 0.1 % (0-2); EOSINOPHILS 0.7 % (0-7); HEMATOCRIT 26.5 % (42.0-54.0); HEMOGLOBIN 8.2 g/dL (13.5-17.5); IMMATURE GRANULOCYTES 0.5 % (0-5); LYMPHOCYTES 5.9 % (15-50); MCH 29.7 pg (26.0-34.0); MCHC 30.9 g/dL (31.0-37.0); MEAN PLATELET VOLUME 8.5 fL (7.4-10.4); MONOCYTES 4.4 % (2-11); NEUTROPHILS 88.4 % (40-80); PLATELET COUNT 277 10x3/uL (130-400); RBC 2.76 10x6/uL (4.20-6.10); RDW 16.2 % (11.5-14.5); WBC 13.6 10x3/uL (4.8-10.8)
[2017-02-21 06:52] LABS: ANION GAP 11.7 mmol/L (8-16); CALCIUM 8.2 mg/dL (8.5-10.1); CARBON DIOXIDE 26.3 mmol/L (21.0-32.0); CREATININE - SERUM 1.1 mg/dL (0.6-1.3)
--- NOTE | 2017-02-21 07:30 | NUR ---
RECIEVED PT DURING WALKING ROUNDS. PT ASLEEP WITH NO VISABLE SIGNS OF PAIN OR DISCOMFORT AT THIS TIME. ASSESSMENT DONE PER FLOWSHEET, BED IN LOW POSITION AND CALL LIGHT WITHIN REACH. WILL CONTINUE TO MONITOR.
[2017-02-21 08:17] VITALS: BP 130/51
[2017-02-21 12:03] VITALS: BP 105/66
--- NOTE | 2017-02-21 14:05 | NUR ---
SPOKE WITH JONO, SPEECH THERAPIST AT THIS TIME ABOUT RE-EVALUATING PT FOR SWALLOW EVAL. JONO STATED HE WOULD SEE PT AND RE-EVALUATE TODAY. BED IN LOW POSITION AND CALL LIGHT WITHIN REACH. WILL CONTINUE TO MONITOR.
--- NOTE | 2017-02-21 14:35 | NUR ---
NUTRITION MONITORING & EVAL CHART REVIEWED, PT CURRENTLY NPO. AWAITING SPEECH THERAPY CONSULT. WILL MONITOR DIET ADVANCEMENT, PO INTAKE. RD FOLLOWING
[2017-02-21 16:14] VITALS: BP 154/62
[2017-02-21 20:00] VITALS: BP 132/79
--- NOTE | 2017-02-21 20:24 | NUR ---
PATIENT PULLED OUT IV TO RIGHT FOREARM WITH CATHETER INTACT. IV RESITED TO LEFT HAND 20G X'S 1 ATTEMPT FROM RANGEL LE.
--- NOTE | 2017-02-21 21:24 | NUR ---
THE ACETAMINOPHEN AT 1807 THAT WAS SCANNED IS STILL HANGING, IT WAS NOT INFUSED. UNABLE TO CHANGE IT ON THE SEP, BECAUSE I WAS NOT THE ONE TO SCAN IT. CALLED PHARMACY, SPOKE WITH JULIO CESAR HE SAID HE IS UNABLE TO EDIT IT. I AM ADMINISTERING NORCO AT THIS TIME, THERE IS A SAFETY MESSAGE THAT POPPED UP SAYING PATIENT EXCEEDED ACETAMINOPHEN DOSE FOR THE LAS 24 HOURS, HOWEVER HE HAS NOT BECAUSE HE DID NOT GET THE 1000MG ACETAMINOPHEN AT 1807.
[2017-02-22] VITALS: BP 102/68
[2017-02-22 04:00] VITALS: BP 141/69
[2017-02-22 05:49] LABS: BASOPHILS 0.1 % (0-2); EOSINOPHILS 0 % (0-7); HEMATOCRIT 28.7 % (42.0-54.0); HEMOGLOBIN 9.1 g/dL (13.5-17.5); IMMATURE GRANULOCYTES 0.7 % (0-5); LYMPHOCYTES 3.1 % (15-50); MCHC 31.7 g/dL (31.0-37.0); MCV 94.7 fL (80.0-100.0); MEAN PLATELET VOLUME 8.9 fL (7.4-10.4); MONOCYTES 0.5 % (2-11); NEUTROPHILS 95.6 % (40-80); RBC 3.03 10x6/uL (4.20-6.10); WBC 18.6 10x3/uL (4.8-10.8)
[2017-02-22 05:50] LABS: PLATELET COUNT 339 10x3/uL (130-400)
[2017-02-22 06:15] LABS: ALBUMIN 2.2 g/dL (3.4-5.0); ALKALINE PHOSPHATASE 158 U/L (46-116); ALT (SGPT) 33 U/L (10-68); CALCIUM 8.5 mg/dL (8.5-10.1); CHLORIDE - SERUM 103 mmol/L (98-107); POTASSIUM - SERUM 4.3 mmol/L (3.5-5.1); PROTEIN - SERUM 6.8 g/dL (6.4-8.2); SODIUM 137 mmol/L (136-145); UREA NITROGEN 20 mg/dL (7-18); eGFR NON AFRICAN AMERICAN 76 mL/min (90-120)
[2017-02-22 06:16] LABS: CALC OSMOLALITY 278 mosm/kg (275-300); CARBON DIOXIDE 18.4 mmol/L (21.0-32.0); GLUCOSE 129 mg/dL (74-106)
--- NOTE | 2017-02-22 06:22 | NUR ---
CARBAJAL CATHETER CARE COMPLETED AT THIS TIME.
--- NOTE | 2017-02-22 07:48 | NUR ---
AWAKE AND ALERT WITH AT BEDSIDE. CARBAJAL PATENT AND DRAINING TO GRAVITY. BED ALARM ON AND CALL LIGHT IN REACH. WILL CONTINUE WITH PLAN OF CARE.
--- NOTE | 2017-02-22 08:39 | NUR ---
Wound care consult: There are 2 wounds on lateral right lower extremity: #1 Right lateral ankle measuring 2cm x 2cm x dark scab. Small amount of bleeding noted. No odor. Lower leg and foot are warm to the touch and very tender. #2 Right lateral foot 2cm x 1cm x dark scab. No odor and no bleeding noted. This area is very tender also. I applied a mepilex thick cushioned dressing over both areas for added protection and comfort. He also has a quilted ankle, heel, foot protector on. I will reassess and adjust wound care as necessary.
[2017-02-22 09:29] VITALS: BP 156/84
--- NOTE | 2017-02-22 10:20 | NUR ---
VALIUM TAKEN TO PATIENT IN MRI FOR ANXIETY R/T MRI. ADMINISTERED PER ORDER.
--- NOTE | 2017-02-22 10:59 | NUR ---
BACK TO ROOM FROM MRI AT THIS TIME. WILL MONITOR PATIENT. AT BEDSIDE WITH CALL LIGHT IN REACH.
--- NOTE | 2017-02-22 11:19 | NUR ---
PRN NORCO ADMINISTERED FOR PAIN. AT BEDSIDE. CALL LIGHT IN REACH AND BED ALARM ON. WILL CONTINUE WITH PLAN OF CARE.
--- NOTE | 2017-02-22 12:15 | NUR ---
CARBAJAL CARE PROVIDED WITH CARBAJAL CARE WIPES.
[2017-02-22 12:24] VITALS: BP 153/86
--- NOTE | 2017-02-22 14:50 | NUR ---
SLEEPING AT THIS TIME WITH RESPIRATIONS EVEN AND NON LABORED. BED ALARM ON AND DOOR OPEN. CALL LIGHT IN REACH, WILL CONTINUE WITH PLAN OF CARE.
[2017-02-22 16:14] VITALS: BP 164/78
--- NOTE | 2017-02-22 19:53 | NUR ---
PATIENT RESTING IN BED WITH EYES CLOSED AND NO VISIBLE SIGNS OF DISTRESS. BED IN LOWEST POSITION, CALL LIGHT WITHIN REACH, AND BED ALARM ON.
[2017-02-22 20:00] VITALS: BP 152/67
[2017-02-23] VITALS (7 sets, daily range): BP systolic 127–173; BP diastolic 58–95
[2017-02-23 06:22] LABS: BASOPHILS 0 % (0-2); EOSINOPHILS 0 % (0-7); HEMATOCRIT 30.4 % (42.0-54.0); HEMOGLOBIN 9.4 g/dL (13.5-17.5); IMMATURE GRANULOCYTES 1.5 % (0-5); LYMPHOCYTES 3.9 % (15-50); MCH 29.3 pg (26.0-34.0); MCHC 30.9 g/dL (31.0-37.0); MCV 94.7 fL (80.0-100.0); MEAN PLATELET VOLUME 8.7 fL (7.4-10.4); MONOCYTES 1.7 % (2-11); NEUTROPHILS 92.9 % (40-80); PLATELET COUNT 367 10x3/uL (130-400); RBC 3.21 10x6/uL (4.20-6.10); RDW 15.9 % (11.5-14.5); WBC 18.9 10x3/uL (4.8-10.8)
[2017-02-23 06:47] LABS: BILIRUBIN - TOTAL 0.41 mg/dL (0.2-1.3); CALCIUM 8.4 mg/dL (8.5-10.1); CREATININE - SERUM 1.2 mg/dL (0.6-1.3); POTASSIUM - SERUM 4.5 mmol/L (3.5-5.1); PROTEIN - SERUM 6.7 g/dL (6.4-8.2)
[2017-02-23 06:51] LABS: CARBON DIOXIDE 23.5 mmol/L (21.0-32.0)
--- NOTE | 2017-02-23 09:31 | NUR ---
SCHEDULED MEDICATIONS ADMINISTERED AT THIS TIME. AWAKE AND ALERT. BED ALARM ON AND DOOR OPEN. WILL CONTINUE WITH PLAN OF CARE.
--- NOTE | 2017-02-23 11:11 | NUR ---
NUTRITION MONITORING & EVAL CHART REVIEWED, PT VISIT. SPOUSE AT BEDSIDE. REPORTS PT WITH ~50% INTAKE BREAKFAST. WILL PROVIDE MIGHTY SHAKE WITH MEALS, PRUNE JUICE AT BREAKFAST. NOTE 24 HOUR LAVERN COUNT TO START. RD FOLLOWING
--- NOTE | 2017-02-23 13:43 | NUR ---
PRN NORCO ADMINISTERED PER ORDER FOR PAIN. REMAINS AT BEDSIDE.
--- NOTE | 2017-02-23 14:42 | NUR ---
STAT LOCK TO CARBAJAL CATHETER CHANGED AT THIS TIME AND CARBAJAL CARE PROVIDED WITH CARBAJAL CARE WIPES. AT BEDSIDE. KANWAL WITH PHYSICAL THERAPY TRANSFERRING PATIENT BACK TO BED AT THIS TIME.
--- NOTE | 2017-02-23 15:05 | NUR ---
REHAB PRESCREENING Rehab referral received and chart reviewed. Mr. Sutton is well known to our rehab. He does have a rehab diagnosis. We will interview with him and his family to see if he meets admission criteria. Thank you for this referral! Gertrude Cummins, [facility] Rehab Office Supervisor
--- NOTE | 2017-02-23 23:24 | NUR ---
PATIENT IS RESTING QUIETLY WITH EYES CLOSED. NO SIGNS OF DISTRESS NOTED. HOB 45 DEGREES. NO SIGNS OF DISTRESS NOTED. BED IN LOWEST POSITION, CALL LIGHT IN REACH. BED RIALS UP X'S 2.
[2017-02-24 04:00] VITALS: BP 149/71
[2017-02-24 04:55] LABS: BASOPHILS 0.1 % (0-2); EOSINOPHILS 0.1 % (0-7); HEMATOCRIT 29.6 % (42.0-54.0); HEMOGLOBIN 9.2 g/dL (13.5-17.5); IMMATURE GRANULOCYTES 2.4 % (0-5); LYMPHOCYTES 4.6 % (15-50); MCH 29.3 pg (26.0-34.0); MCHC 31.1 g/dL (31.0-37.0); MCV 94.3 fL (80.0-100.0); MEAN PLATELET VOLUME 8.9 fL (7.4-10.4); MONOCYTES 3.9 % (2-11); NEUTROPHILS 88.9 % (40-80); PLATELET COUNT 371 10x3/uL (130-400); RBC 3.14 10x6/uL (4.20-6.10); RDW 15.9 % (11.5-14.5); WBC 18.5 10x3/uL (4.8-10.8)
[2017-02-24 05:15] LABS: ALBUMIN 2.1 g/dL (3.4-5.0); ANION GAP 14.6 mmol/L (8-16); BILIRUBIN - TOTAL 0.3 mg/dL (0.2-1.3); CALCIUM 8.3 mg/dL (8.5-10.1); POTASSIUM - SERUM 4.6 mmol/L (3.5-5.1); PROTEIN - SERUM 6.5 g/dL (6.4-8.2)
[2017-02-24 05:24] LABS: CREATININE - SERUM 1.7 mg/dL (0.6-1.3)
--- NOTE | 2017-02-24 07:45 | NUR ---
RESTING QUIETLY WITH EYES CLOSED. ROUSED TO TACTILE AND VERBAL STIMULATION. ORIENTED TO SELF ONLY. ATTEMPTS TO REORIENT WITHOUT SUCCESS. LUNGS ARE CLEAR BUT DIMINISHED THROUGHOUT. NON PRODUCTIVE COUGH NOTED. SKIN IS INTACT WITHOUT REDNESS EXCEPT WOUND TO RIGHT OUTER ANKLE WHICH IS ABOUT THE SIZE OF A HALF DOLLAR. SOFT BOOT IN PLACE TO PROTECT WOUND. IV TO RIGHT HAND IS PATENT WITHOUT REDNESS AT ISNERTION SITE. DENIES NEEDS.
--- NOTE | 2017-02-24 08:29 | NUR ---
Patient Name: LAMBERTO MOAR Admission Status: Urgent Accout number: [id number] Admission Date: 02-16-2017 : 1935 Admission Diagnosis:NON-PRESSURE CHRONIC ULCER OTH PRT R LOW LEG W UNSP SEV Attending: MARKELL PERES Current LOS: 8 Anticipated DC Date: Planned Disposition: Primary Insurance: MEDICARE A & B Discharge Planning Comments: CM has attempted to complete the discharge planning assessment multiple times without any success. CM has gone to the patients room on several occasions and called family with no answer. CM will continue to follow and assist Mule Operator: Winnie Leonardo
--- NOTE | 2017-02-24 10:00 | NUR ---
ATE ONLY A FEW BITES OF BREAKFAST. TOOK AM MEDS CRUSHED IN . AT BEDSIDE.
[2017-02-24 10:19] VITALS: BP 118/59
--- NOTE | 2017-02-24 10:46 | NUR ---
Patient Name: LAMBERTO MORA Admission Status: Urgent Accout number: [id number] Admission Date: 02-16-2017 : 1935 Admission Diagnosis:NON-PRESSURE CHRONIC ULCER OTH PRT R LOW LEG W UNSP SEV Attending: MARKELL PERES Current LOS: 8 Anticipated DC Date: Planned Disposition: Nursing Facility [facility] Primary Insurance: MEDICARE A & B Discharge Planning Comments: CM met with [facility] patient's to discuss discharge planning. Patient is a resident at [facility] and will return there. Patient is total dependent. CM will continue to follow and assist as needed. PCP: Anish Marks [facility] () [phone] Personalized Living Manager: Winnie Leonardo * Is the patient Alert and Oriented? Yes 0 * PCP ANISH 0 * Pharmacy [facility] 0 * Preadmission Environment Fluid Designer Half-Way 0 * Facility Name [facility] 0 * ADLs Total Dependent 0 * List name and contact numbers for known caregivers / representatives who currently or will assist patient after discharge: MCKENZIE MORA () [phone] 0 * Additional services required to return to the preadmission environment? No 0 * Can the patient safely return to the preadmission environment? Yes 0 * Has this patient been hospitalized within the prior 30 days at any hospital? No 0 Grand Total: 0
--- NOTE | 2017-02-24 13:22 | NUR ---
Nutrition Calorie Count: Pt continues with very poor po intake. Per nursing and pt's spouse, he is only taking a few bites (at the most) of each meal. Pt continues not meeting est nutritional needs. Will continue to honor food preferences. RD following.
[2017-02-24 13:28] VITALS: BP 141/67
[2017-02-24 18:10] VITALS: BP 102/67
--- NOTE | 2017-02-24 19:09 | NUR ---
ATE A FEW BITES OF GRILLED CHEESE AND DRANK MOST OF GLUCERNA. NO CHANGES NOTED. DENIES NEEDS.
--- NOTE | 2017-02-24 19:45 | NUR ---
PATIENT RESTING IN BED AND DENIES NEEDS AT THIS TIME. BED IN LOWEST POSITION AND CALL LIGHT WITHIN REACH. ENCOURAGED THE PATIENT TO CALL IF HE HAS NEEDS.
[2017-02-24 20:00] VITALS: BP 139/61
[2017-02-24 23:37] VITALS: BP 137/64
[2017-02-25 04:00] VITALS: BP 137/71
[2017-02-25 06:59] LABS: HEMATOCRIT 27.3 % (42.0-54.0); HEMOGLOBIN 8.9 g/dL (13.5-17.5); LYMPHOCYTES 5.7 % (15-50); MCH 30.3 pg (26.0-34.0); MCHC 32.6 g/dL (31.0-37.0); MCV 92.9 fL (80.0-100.0); MEAN PLATELET VOLUME 8.4 fL (7.4-10.4); NEUTROPHILS 87.5 % (40-80); PLATELET COUNT 347 10x3/uL (130-400); RBC 2.94 10x6/uL (4.20-6.10); RDW 15.5 % (11.5-14.5); WBC 17.1 10x3/uL (4.8-10.8)
[2017-02-25 07:12] LABS: ANION GAP 15.9 mmol/L (8-16); CARBON DIOXIDE 23.4 mmol/L (21.0-32.0); POTASSIUM - SERUM 4.3 mmol/L (3.5-5.1)
[2017-02-25 07:30] LABS: ALBUMIN 2.1 g/dL (3.4-5.0); BILIRUBIN - TOTAL 0.3 mg/dL (0.2-1.3); CREATININE - SERUM 1.4 mg/dL (0.6-1.3)
--- NOTE | 2017-02-25 07:54 | NUR ---
PATIENT SITTING UP IN BED WITH IV INTACT. NO COMPLAINTS. STATED HE WAS TIRED. BED ALARM ON. CALL LIGHT WITHIN REACH.
[2017-02-25 09:23] VITALS: BP 161/77
--- NOTE | 2017-02-25 10:44 | NUR ---
PATIENT WILL BE GOING TO INPATIENT REHAB TODAY, AT BEDSIDE AND IS AWARE. IMM SERVED CM WILL CONTINUE TO FOLLOW AND ANSSIST NEEDED
--- NOTE | 2017-02-25 11:03 | NUR ---
Rehab Note- Visited with the patient and his . They are in aggreement with acute rehab and feel that he would benefit from acute rehab as he has been before and had good success. Will plan on admitting to [facility] Rehab when medically stable and ready for discharge from the acute hospital. Spoke with RANGEL Molina. Thank you for this referral! Elizabeth Ramos RN Clinical Liaison, [facility] Rehab
[2017-02-25 13:23] VITALS: BP 156/86
[2017-02-25] MEDS ORDERED: XOPENEX 0.0.63 MG/3 UPD (14:57)
[2017-02-25] MEDS ORDERED: GUAIFENESI100 MG/5 M NG (14:57)
[2017-02-25] MEDS ORDERED: PLAVIX75 MG PO (14:57)
[2017-02-25] MEDS ORDERED: DURAGESIC1 PATCH .7 TRANSDERM (14:57)
[2017-02-25] MEDS ORDERED: FLORAJEN3 CAPS460 MG PO (14:57)
[2017-02-25] MEDS ORDERED: SOLU-MEDRO40 MG/1 M1 IV (14:57)
[2017-02-25] MEDS ORDERED: PEPCID20 MG PO (14:57)
[2017-02-25] MEDS ORDERED: CLEOCIN PREMIX600 MG IV (14:57)
[2017-02-25] MEDS ORDERED: PULMICORT0.5 MG/21 UPD (14:57)
[2017-02-25] MEDS ORDERED: TEFLARO 600 MG600 M1 IV (14:57)
[2017-02-25] MEDS ORDERED: ATROVENT 0.02%2.5 ML UPD (14:57)
[2017-02-25] MEDS ORDERED: ONDANSETRON4 MG/2 M3 IV (14:57)
[2017-02-25] MEDS ORDERED: BROVANA15 MCG/2 M INH (14:57)
[2017-02-25] MEDS ORDERED: Levaquin PREMIX IV (14:57)
[2017-02-25] MEDS ORDERED: LOVENOX40 MG/0.4 SC (14:57)
[2017-02-25] MEDS ORDERED: HYDROCODON-ACE1 EAC7 PO (14:57)
[2017-02-25 17:27] VITALS: BP 164/75
--- NOTE | 2017-02-25 18:45 | NUR ---
PATIENT IN BED AWAITING TO BE TAKEN TO REHAB. IV INTACT. FAMILY AT BEDSIDE. ALL PERSONAL BELONGINGS PUT TOGETHER BY . NO COMPLAINTS. CALL LIGHT WITHIN REACH.
[2017-02-26 19:08] LABS: AEROBE ID Final report (())
== END 2017-02-25 20:00 | DRG 252 ==
LOC: D.MS 15:07 → D.SDCHOLD 02-18 20:32 → D.MS 02-18 20:41
PROVIDERS: Emergency Medicine; Family Medicine; Radiology Diagnostic Radiology; ADMIT Internal Medicine Cardiovascular Disease
PROC: B41F1ZZ Fluoroscopy of Right Lower Extremity Arteries using Low Osmolar Contrast (ICD-10-PCS; principal; 2017-02-17 15:00)
PROC: 047 Lower Arteries, Dilation (ICD-10-PCS; principal; 2017-02-17 15:00)
PROC: 04CK0ZZ Extirpation of Matter from Right Femoral Artery, Open Approach (ICD-10-PCS; principal; 2017-02-17 15:00)
DX: I70.238 Atherosclerosis of native arteries of right leg with ulceration of other part of lower leg (principal); J18.9 Pneumonia, unspecified organism; N39.0 Urinary tract infection, site not specified; C79.51 Secondary malignant neoplasm of bone; J44.1 Chronic obstructive pulmonary disease with (acute) exacerbation; G72.81 Critical illness myopathy; L97.819 Non-pressure chronic ulcer of other part of right lower leg with unspecified severity; G30.9 Alzheimer's disease, unspecified; F02.80 Dementia in other diseases classified elsewhere, unspecified severity, without behavioral disturbance, psychotic disturbance, mood disturbance, and anxiety; E78.00 Pure hypercholesterolemia, unspecified; I10 Essential (primary) hypertension; I48.91 Unspecified atrial fibrillation; R13.10 Dysphagia, unspecified; C61 Malignant neoplasm of prostate; Z66 Do not resuscitate; I25.10 Atherosclerotic heart disease of native coronary artery without angina pectoris; F41.9 Anxiety disorder, unspecified; E03.9 Hypothyroidism, unspecified

== ENCOUNTER 2017-02-25 15:24 | Inpatient (IN) | payer MEDICARE ==
[~2017-02-25] VITALS: Ht 172.7 cm; Wt 57.6 kg
[~2017-02-25 15:24] MED LIST changes: +ATROVENT 0.02%2.5 ML UPD; +BROVANA15 MCG/2 M INH; +CLEOCIN PREMIX600 MG IV; +DURAGESIC1 PATCH .7 TRANSDERM; +FLORAJEN3 CAPS460 MG PO; +GUAIFENESI100 MG/5 M NG; +HYDROCODON-ACE1 EAC7 PO; +LOVENOX40 MG/0.4 SC; +Levaquin PREMIX IV; +MEGACE400 MG/10 PO; +MIRALAX17 GM PO; +MULTIPLE VITAMI1 TA1 PO; +ONDANSETRON4 MG/2 M3 IV; +PEPCID20 MG PO; +PLAVIX75 MG PO; +PULMICORT0.5 MG/21 UPD; +SOLU-MEDRO40 MG/1 M1 IV; +SYNTHROID25 MCG PO; +TEFLARO 600 MG600 M1 IV; +XOPENEX 0.0.63 MG/3 UPD
--- NOTE | 2017-02-25 19:30 | NUR ---
RECEIVED PATIENT TO UNIT TO BED 1112A. PATIENT WAS ACCOMPANIED BY HIS AND ACUTE CARE GUEST SERVICES ASSISTANT. KAT BED ALARM SET UP AND IS NOW ARMED. SR UP X3. PLASMALYTE PRIMARY SOLUTION INFUSING CURRENTLY @ 30ML PER HOUR UNTIL COMPLETION OF THIS BAG. HAS NO ORDERS FOR FURTHER PLASMALYTE AND PRIMARY SOLUTION WILL BE CHANGED TO NS WHEN THIS BAG COMPLETES.
[2017-02-25 20:27] VITALS: BP 156/72
--- NOTE | 2017-02-25 21:00 | NUR ---
NOW DEPARTING. PATIENT IS NOT COMPETENT TO SIGN HIS ADMISSION DOCUMENTS, NOTIFIED HIS THAT SHE WILL NEED TO SIGN THEM TOMORROW WHEN SHE VISITS.
--- NOTE | 2017-02-25 22:00 | NUR ---
RESTING IN BED, EYES CLOSED.
[2017-02-25 23:32] VITALS: BP 156/72; BMI 19.3
--- NOTE | 2017-02-25 23:50 | NUR ---
ADMISSION ASSESSMENT COMPLETE. CLINDAMYCIN 600MG CURRENTLY INFUSING OVER 30 MINUTES PER PUMP VIA LEFT HAND S/L.
--- NOTE | 2017-02-26 01:15 | NUR ---
TEFLARO 600MG IVPB STARTED TO RUN OVER 1 HOUR PER PUMP VIA LEFT HAND S/L.
--- NOTE | 2017-02-26 02:15 | NUR ---
TEFLARO INFUSION COMPLETE. PLASMALYTE RESUMED @ 30 ML/HR RATE. PATIENT APPEARS COMFORTABLE.
--- NOTE | 2017-02-26 04:45 | NUR ---
RESTING QUIETLY IN BED, RESPIRATIONS REGULAR AND UNLABORED. EMPTIED 900 ML SLIGHTLY CLOUDY YELLOW URINE FROM CARBAJAL DRAINAGE BAG.
--- NOTE | 2017-02-26 06:55 | NUR ---
GAVE PATIENT SCHEDULED MEDS. PATIENT HAS NO C/O AT THIS TIME.
[2017-02-26 07:04] LABS: BASOPHILS 0.1 % (0-2); EOSINOPHILS 0 % (0-7); HEMATOCRIT 28.5 % (42.0-54.0); HEMOGLOBIN 8.9 g/dL (13.5-17.5); IMMATURE GRANULOCYTES 2.5 % (0-5); LYMPHOCYTES 4.7 % (15-50); MCH 29.6 pg (26.0-34.0); MCHC 31.2 g/dL (31.0-37.0); MCV 94.7 fL (80.0-100.0); MONOCYTES 4.5 % (2-11); NEUTROPHILS 88.2 % (40-80); PLATELET COUNT 333 10x3/uL (130-400); RBC 3.01 10x6/uL (4.20-6.10); RDW 15.8 % (11.5-14.5); WBC 17.5 10x3/uL (4.8-10.8)
[2017-02-26 07:22] LABS: CALCIUM 7.8 mg/dL (8.5-10.1); CARBON DIOXIDE 23.7 mmol/L (21.0-32.0); CREATININE - SERUM 1.2 mg/dL (0.6-1.3); POTASSIUM - SERUM 4.7 mmol/L (3.5-5.1)
--- NOTE | 2017-02-26 07:30 | NUR ---
SITTING UP IN BED RESTING COMFORTABLY. C/O RIGHT ANKLE PAIN 12/11 WILL CHECK AND SEE WHEN LAST ORAL PAIN MEDS WERE GIVEN. CARBAJAL CATH PATENT AND FREE OF KINKS. CONTINUES ON 2L OF O2 VIA NC. CALL LIGHT IN REACH. WILL CONTINUE TO MONITOR
[2017-02-26 08:00] VITALS: BP 147/70
--- NOTE | 2017-02-26 10:41 | NUR ---
SITTING UP IN BED 90 DEGREES. AT BEDSIDE STATES SON WILL BE BY LATER TO SIGN PAPERWORK. C/O PAIN IN RIGHT ANKLE REPOSITIONED FOR COMFORT. NO OTHER CONCERNS VOICED
--- NOTE | 2017-02-26 10:43 | NUR ---
SITTING UP IN BED.CL IN REACH.
[2017-02-26 10:50] VITALS: Ht 172.7 cm; Wt 57.6 kg
--- NOTE | 2017-02-26 14:59 | NUR ---
IN THERAPY GYM WITH PHYSICAL THERAPY
--- NOTE | 2017-02-26 16:09 | NUR ---
SITTING UP IN BED HOB 90 DEGREES. AT BEDSIDE. NO CONCERNS VOICED. CALL LIGHT IN REACH. WILL CONTINUE TO MONITOR
--- NOTE | 2017-02-26 19:30 | NUR ---
PT IS LYING IN BED, COMPLAINS OF FOOT STILL HURTING REALLY BAD, ADVISED PT TO LET PAIN MED WORK, JUSTGIVEN A LITTLE BIT AGO. BED IN LOW POSITION, CALL LIGHT IN REACH WILL CONTINUE TO MONITOR AND FOLLOW PLAN OF CARE
--- NOTE | 2017-02-26 19:49 | NUR ---
PT. IN BED AND ASSISTED DAY SHIFT NURSE WITH ADJUSTING HIM UP IN BED. POSITIONED TO COMFORT. CARBAJAL TO BSD WITHOUT PROBLEMS. VISITING. CALL LIGHT WITHIN REACH.
--- NOTE | 2017-02-27 01:36 | NUR ---
PT IS LYING IN BED WITH HOB AT 30 DEGREES. EYES ARE CLOSED WITH EVEN RISE AND FALL OF CHEST, NO SIGNS OF DISTRESS PRESENT. WILL CONTINUE PLAN OF CARE FOR PT
--- NOTE | 2017-02-27 07:30 | NUR ---
LYING IN BED RESTING COMFORTABLY. NO S/SX OF DISTRESS. CONTINUES ON 2L 02 VIA HALINA. SOLOMON PATENT AND FREE OF KINKS. CALL LIGHT IN REACH. WILL CONTINUE TO MONITOR
[2017-02-27 08:00] VITALS: BP 143/58
--- NOTE | 2017-02-27 10:24 | NUR ---
SITTING UP IN BED RESTING. AT BEDSIDE. NO S/SX OF DISTRESS. CALL LIGHT IN REACH. WILL CONTINUE TO MONITOR
--- NOTE | 2017-02-27 13:39 | NUR ---
LYING IN BED RESTING COMFORTABLY AT BEDSIDE. CALL LIGHT IN REACH
--- NOTE | 2017-02-27 15:38 | NUR ---
SITTING UP IN BED WATCHING TV. AT BEDSIDE. NO S/SX OF DISTRESS. EMPTIED 1100ML FROM CARBAJAL. CALL LIGHT IN REACH. WILL CONTINUE TO MONITOR
--- NOTE | 2017-02-27 17:09 | NUR ---
RESTING QUIETLY IN BED.CL IN REACH.
--- NOTE | 2017-02-27 19:26 | NUR ---
INTRODUCED SELF TO PT, PT STATES SUSAN, WILL CONTINUE TO MONITOR, CALL LIGHT WITHIN REACH.
--- NOTE | 2017-02-27 19:45 | NUR ---
PT. IN BED WITH HOB UP FOR COMFORT AND IS WATCHING TV. IV INFUSING VIA RT HAND WITHOUT ANY ALARMS. O2 ON VIA N/C WITHOUT ANY S/S DISTRESS OBSERVED. CARBAJAL TO BSD WITHOUT ANY PROBLEMS. PT'S CALL LIGHT IS WITHIN REACH.
[2017-02-27 21:20] VITALS: BP 149/59
--- NOTE | 2017-02-27 21:27 | NUR ---
NIGHT MEDICATION GIVEN, PT STATES PAIN AT A 7 IN RIGHT FOOT, PAIN MED GIVEN, WILL CONTINUE TO MONITOR, CALL LIGHT WITHIN REACH.
--- NOTE | 2017-02-27 22:17 | NUR ---
REASESSED PAIN, PT STATES PAIN AT A 2, WILL CONTINUE TO MONITOR, CALL LIGHT WITHIN REACH.
--- NOTE | 2017-02-27 22:31 | NUR ---
PT RESTING IN BED, RESPIRATION EVEN, BED IN LOW POSITION, SIDE RAILS UP X'S 2, POSSY ALARM ON, CALL LIGHT WITHIN REACH. WILL CONTINUE TO MONITOR.
--- NOTE | 2017-02-28 00:30 | NUR ---
PT STATES CANT SLEEP, MELATONIN GIVEN, WILL CONTINUE TO MONITOR, CALL LIGHT WITHIN REACH.
--- NOTE | 2017-02-28 02:01 | NUR ---
PT STATES PAIN AT A 7 IN RIGHT FOOT, PAIN MED GIVEN, PT TOLERATED WELL, WILL CONTINUE TO MONITOR, CALL LIGHT WITHIN REACH.
--- NOTE | 2017-02-28 03:18 | NUR ---
PT STATES PAIN AT A 0, PT STATES NO NEW NEEDS AT THIS TIME, WILL CONTINUE TO MONITOR, CALL LIGHT WITHIN REACH.
--- NOTE | 2017-02-28 05:29 | NUR ---
MORNING MEDICATION GIVEN, PT TOLERATED WELL, WILL CONTINUE TO MONITOR, CALL LIGHT WITHIN REACH.
[2017-02-28 07:53] LABS: HEMOGLOBIN 9.4 g/dL (13.5-17.5); MCH 29.7 pg (26.0-34.0); MCHC 31.3 g/dL (31.0-37.0); MCV 94.9 fL (80.0-100.0); MEAN PLATELET VOLUME 8.6 fL (7.4-10.4); PLATELET COUNT 346 10x3/uL (130-400); RBC 3.16 10x6/uL (4.20-6.10); RDW 16.2 % (11.5-14.5); WBC 24.4 10x3/uL (4.8-10.8)
[2017-02-28 07:58] LABS: ANION GAP 14.2 mmol/L (8-16); CALCIUM 8.3 mg/dL (8.5-10.1); CARBON DIOXIDE 23.7 mmol/L (21.0-32.0); CREATININE - SERUM 1.2 mg/dL (0.6-1.3); POTASSIUM - SERUM 4.9 mmol/L (3.5-5.1)
[2017-02-28 09:03] VITALS: BP 139/60
--- NOTE | 2017-02-28 09:16 | NUR ---
PT AM MEDS ADMINISTERED CRUSHED IN PUDDING. PT VERY LETHARGIC THIS AM, WAKES UP LONG ENOUGH TO SWALLOW ONE BITE THEN GOES RIGHT BACK TO SLEEP. PT AT BEDSIDE ASSISTING PT WITH BREAKFAST. CATIE.
[2017-02-28 09:48] LABS: ANISOCYTOSIS OCC; HYPOCHROMASIA 1+; LYMPHOCYTES 5 % (15-50); MONOCYTES 8 % (2-11); NEUTROPHILS 82 % (40-80); PLATELET ESTIMATE NORMAL
--- NOTE | 2017-02-28 11:58 | NUR ---
PT MEDS ADMINISTERED. PT SITTING UP IN CHAIR, SPOUSE AT SIDE ASSISTING WITH NEEDS. WCTM.
--- NOTE | 2017-02-28 19:40 | NUR ---
PT IS RESTING IN BED WITH EYES CLOSED. AWOKE TO A LIGHT SHAKE ON THE SHOULDER, BUT IS VERY DROWSY. PT DID NOT SPEAK OR ANSWER AND QUESTIONS, BUT WOULD SMILE WHEN SPOKEN TO. VSS. O2 IS ON @ 2LPM PER NC. NO SOB NOTED. CARBAJAL CATH IS PATENT AND DRAINING TO A GRAVITY BAG. DRESSINGS TO RIGHT FOOT ARE CDI. FOOT IS BRIDGED UP ON A PILLOW. SR'S ARE UP X 3 IN BED. CALL LIGHT AND BEDSIDE TABLE ARE WITHIN EASY REACH.
--- NOTE | 2017-02-28 19:55 | NUR ---
RESTING QUIETLY IN BED, EYES CLOSED.
[2017-02-28 20:00] VITALS: BP 119/57
--- NOTE | 2017-02-28 20:57 | NUR ---
PT IS RESTING QUIETLY IN BED WITH EYES CLOSED. RESPS ARE EVEN AND UNLABORED. NO ACUTE DISTRESS NOTED. PT ASSISTED TO TURN AND REPOSITION AT THIS TIME.
--- NOTE | 2017-03-01 00:01 | NUR ---
PT IS RESTING IN BED WITH EYES CLOSED. RESPS AR EVEN AND UNLABORED. NO ACUTE DISTRESS NOTED.
--- NOTE | 2017-03-01 01:13 | NUR ---
RESTING IN BED WITH EYES CLOSED.
--- NOTE | 2017-03-01 04:47 | NUR ---
RESTING IN BED WITH EYES CLOSED.
[2017-03-01 07:00] VITALS: BP 158/67
--- NOTE | 2017-03-01 07:45 | NUR ---
SITTING UP IN BED ALERT AND ORIENTED TO SELF. NO S.SX OF DISTRESS. C/O MOUTH PAIN THIS AM. WILL ADDRESS WITH DR. ORTIZ. SOLOMON PATENT AND FREE OF KINKS. CALL LIGHT IN REACH, BED ALARM ON AND IN LOWEST POSITION. WILL CONTINUE TO MONITOR
--- NOTE | 2017-03-01 09:56 | NUR ---
SITTING UP IN BED RESTING COMFORTABLY. EASILY AROUSED WITH STIMULI. ADMINISTERED MED WITHOUT DIFFICULTY. CALL LIGHT IN REACH AND BED LOW.
--- NOTE | 2017-03-01 11:08 | NUR ---
SITTING UP IN WHEELCHAIR WORKING WITH ASAEL WITH PHYSICAL THERAPY. NO OTHER COMPLAINTS. CALL LIGHT IN REACH. WILL CONTINUE TO MONITOR
--- NOTE | 2017-03-01 14:34 | NUR ---
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 #1 RIGHT ANKLE MEASURES 2.5CM X 2.5CM X 0.2CM THE WOUND BED IS DARK/WET WITH NECROTIC TISSUE AROUND EDGES. BLEEDS EASILY. VERY PAINFUL. #2 RIGHT LATERAL FOOT 2CM X 2CM X 0.3CM. DARK WOUND BED WITH NECROTIC TISSUE AROUND EDGES - WET WOUND BED. VERY PAINFUL. BLEEDS EASILY. FOOT IS CYANOTIC (PT UP IN WHEELCHAIR) AND COOL TO TOUCH. RIGHT HEEL IS RED BUT BLANCHES. COVERED WITH MEPILEX BORDER TO PROTECT. CLEANED BOTH WOUNDS WITH WOUND BUILDING MAINTENANCE SUPERINTENDENT AND PATTED DRY. APPLIED MAXORB AG TO WOUND BEDS, COVERED WITH 4X4S AND SECURED WITH LOOSELY WRAPPED KERLIX. ELEVATED FOOT/LEG WITH FOOT REST ON WHEELCHAIR. TOUCHING PT LEG AND WOUND CARE CONTINUES TO BE VERY PAINFUL FOR PT. WOUND CARE WILL CONTINUE TO MONITOR.
--- NOTE | 2017-03-01 17:49 | NUR ---
SITTING UP IN BED EATING DINNER. OFFERS NO COMPLAINTS. AT BEDSIDE. CALL LIGHT IN REACH. WILL CONTINUE TO MONITOR
--- NOTE | 2017-03-01 19:56 | NUR ---
REST COMFORTABLELY IN BED, CALL LIGHT WITHIN REACH.
[2017-03-01 22:16] VITALS: BP 136/64
--- NOTE | 2017-03-02 01:57 | NUR ---
RESTING IN BED WITH EYES CLOSD AT THIS TIME. NO S/S OF DISTRESS OBSERVED. PERIODICALLY YELLS OUT FOR MAMA. EASILY REDIRECTED. IV TO LEFT FA PATENT AND DRESSING CLEAN, DRY AND INTACT. CALL LIGHT IN REACH.
--- NOTE | 2017-03-02 03:08 | NUR ---
REST QUIETLY IN BED, EYE CLOSE, BED LOW, CALL LIGHT IN REACH.
--- NOTE | 2017-03-02 03:14 | NUR ---
PT TAKE OFF OXYGEN NASAL TUBING, AND REFUSED TO PUT IT BACK, STATE IT CAUSE PAIN TO HIS NOSE.
--- NOTE | 2017-03-02 03:45 | NUR ---
ALLOW PUT BACK OXYGEN TUBING AND REST QUIETLY IN BED WITH EYE CLOSE.
[2017-03-02 06:54] LABS: BASOPHILS 0.1 % (0-2); EOSINOPHILS 0 % (0-7); HEMATOCRIT 30.7 % (42.0-54.0); HEMOGLOBIN 9.7 g/dL (13.5-17.5); IMMATURE GRANULOCYTES 0.7 % (0-5); MCHC 31.6 g/dL (31.0-37.0); MEAN PLATELET VOLUME 8.8 fL (7.4-10.4); MONOCYTES 1.6 % (2-11); NEUTROPHILS 96.6 % (40-80); PLATELET COUNT 353 10x3/uL (130-400); RBC 3.23 10x6/uL (4.20-6.10); RDW 16.6 % (11.5-14.5); WBC 37.3 10x3/uL (4.8-10.8)
[2017-03-02 06:55] LABS: CALC OSMOLALITY 294 mosm/kg (275-300); CALCIUM 8.3 mg/dL (8.5-10.1); CARBON DIOXIDE 24.9 mmol/L (21.0-32.0); CHLORIDE - SERUM 108 mmol/L (98-107); GLUCOSE 168 mg/dL (74-106); POTASSIUM - SERUM 4.5 mmol/L (3.5-5.1); SODIUM 143 mmol/L (136-145); UREA NITROGEN 30 mg/dL (7-18); eGFR NON AFRICAN AMERICAN 76 mL/min (90-120)
--- NOTE | 2017-03-02 08:00 | NUR ---
AT BEDSIDE.CO SORES IN MOUTH.ON NYSTATIN S/S. TO ADD NEW MED.
[2017-03-02 08:01] VITALS: BP 120/78
--- NOTE | 2017-03-02 10:00 | NUR ---
PATIENT IN REHAB ROOM. WORKING WITH PHYSICAL THERAPIST. DENIES ANY PAIN/DISC. STATED "I JUST WANT TO GO BACK TO BED".
--- NOTE | 2017-03-02 10:26 | NUR ---
Nutrition Follow Up: Pt and asleep at the time of RD visit. Interview deferred. Pt is eating 26% meal avg on a regular [facility] soft diet. He is receiving Glucerna TID. Noted per chart pt with blisters on tongue. No new wt to assess. +BM 03/01/17. Labs reviewed - Glucose elevated. Meds noted including MV, Megace, Solu Medrol. Rec continue current diet, supplement regimen. RD following.
--- NOTE | 2017-03-02 12:24 | NUR ---
PATIENT BACK IN ROOM. GRANDSON HELPING PATIENT EAT.
--- NOTE | 2017-03-02 14:26 | NUR ---
PATIENT ON A FIRST STEP MATTRESS. PATIENTS C/O FIRST STEP MATTRESS SMELLING VERY MILDEWY. THIS NURSE CALLED AND TALKED WITH THE DIRECTOR OF [employer]ENTR[employer]. THE DIRECTOR STATED SHE WILL CALL THE COMPANY AND SEE IF THEY WILL SEND THE PATIENT A BRAND NEW MATTRESS
--- NOTE | 2017-03-02 17:45 | NUR ---
PATIENTS IN ROOM FEEDING PATIENT. COME OUT TO NURSING STATION AND STATED THAT HER TOOK TWO BITES OF DINNER. STATED HE HAD NOT SWALLOWED FOOD. IT WAS STILL IN HIS MOUTH. STATED THAT SHE WAS LEAVING AND GOING HOME. THIS NURSE WENT INTO PATIENTS ROOM. PATIENT SOUND ASLEEP. THIS NURSE WOKE PATIENT UP AND MADE HIM TAKE A SIP OF WATER. SPEECH THERAPIST ALSO CAME INTO ROOM. PATIENT FINALLY SWALLOWED ALL THE FOOD THAT WAS IN HIS MOUTH. THIS NURSE DID NOT TRY TO FEED PATIENT ANYMORE SUPPER SINCE PATIENT WAS FALLING BACK TO SLEEP.
--- NOTE | 2017-03-02 19:40 | NUR ---
PT. IN BED WITH HOB UP FOR COMFORT ON FIRST STEP MATTRESS. CARBAJAL TO BSD WITHOUT ANY PROBLEMS AND O2 ON. NO S/S DISTRESS OBSERVED. CALL LIGHT WITHIN REACH.
[2017-03-02 20:00] VITALS: BP 155/64
--- NOTE | 2017-03-02 21:06 | NUR ---
PT RESTING IN BED WITH EYES CLOSED. AWAKENS TO VERBAL STIMULI. PT IS VERY ABRUPT TONIGHT. BECOMING ANGRY WITH ALL CARE. REFUSING TO PUT OXYGEN ON AT THIS TIME. LEFT HAND SALINE LOCK NOTED. RESTING ON A 1ST STEP MATTRESS. RIGHT FOOT BOOT IS ON AND INTACT. DRESSINGS ARE CDI. SR'S ARE UP X 3 IN BED. CALL LIGHT AND BEDSIDE TABLE ARE WITHIN EASY REACH.
--- NOTE | 2017-03-03 01:13 | NUR ---
RESTING IN BED. PT AWAKE AND YELLING OUT FOR MAMA. PT DID CALM DOWN WHEN INFORMED OF THE TIME, AND ASHLEYA WAS AT HOME IN BED. HE TOOK A FEW SIPS OF WATER, AND CALMED DOWN.
--- NOTE | 2017-03-03 03:05 | NUR ---
PT AWOKEN FOR NYSTATING S/S. HE REFUSED.
--- NOTE | 2017-03-03 05:44 | NUR ---
PT RESTING IN BED DRINKING A GLASS OF ICE WATER. HE STATES HE IS READY TO GET GOING WITH THERAPY TODAY.
--- NOTE | 2017-03-03 07:40 | NUR ---
LYING IN BED RESTING. OFFERED PT BREAKFAST PT ONLY ATE COUPLE OF BITES AND REFUSED STATES HIS MOUTH AND THROAT HURTS, HAS BLISTERS IN MOUTH AND BACK OF THROAT. WAS ABLE TO GET PT TO DRINK HALF OF GLUCERNA. NO FAMILY AT BEDSIDE. CALL LIGHT IN REACH, BED LOW AND POSITIONED ON RIGHT SIDE
[2017-03-03 08:00] VITALS: BP 157/75
--- NOTE | 2017-03-03 08:00 | NUR ---
POSITIONED UP IN BED ON SIDE.CL IN REACH. AT BEDSIDE.HEELS FLOATED.
--- NOTE | 2017-03-03 09:42 | NUR ---
SITTING UP IN BED RESTING. C/O PAIN IN LOWER EXTREMITIES. ADMINISTERD MORNING MEDS WITH PAIN MEDS WITHOUT DIFFICULTY. NO OTHER CONCERNS VOICED. CALL LIGHT IN REACH, BED LOW. WILL CONTINUE TO MONITOR
--- NOTE | 2017-03-03 11:25 | NUR ---
FAXED OVER ORDER TO [facility] IN [place] IN ORDER FOR HER TO GET PODUS BOOTS FROM [facility].
--- NOTE | 2017-03-03 12:32 | NUR ---
SITTING UP IN W/C EATING LUNCH ASSISTING. OFFERS NO COMPLAINTS. CALL LIGHT IN REACH
--- NOTE | 2017-03-03 14:21 | NUR ---
LYING IN BED RESTING COMFORTABLY. CALL LIGHT IN REACH. AT BEDSIDE.
--- NOTE | 2017-03-03 17:37 | NUR ---
LYING IN BED RESTING COMFORTABLY. CALL LIGHT IN REACH. WILL CONTINUE TO MONITOR
--- NOTE | 2017-03-03 19:35 | NUR ---
PT. IN BED WITH HOB UP FOR COMFORT, LYING ON HIS LEFT SIDE WITH EYES CLOSED AND RESP. EVEN. PT. CONTINUES TO BE ON A FIRS STEP MATTRESS. PT'S PODUS BOOTS ARE ON TO LILLY. FEET WITH PILLOW BETWEEN KNEES FOR COMFORT/SUPPORT. CARBAJAL TO BSD WITHOUT ANY PROBLEMS. CALL LIGHT WITHIN REACH.
[2017-03-03 20:15] VITALS: BP 130/54
--- NOTE | 2017-03-03 21:10 | NUR ---
WHEN WAKING PT. UP FOR ADMIN OF MEDS HE PULLED HIS HEAD AWAY FROM ME AND HAD AN ANGRY LOOK ON HIS FACE. WHEN I ASKED HIM IF HE WOULD TAKE HIS NIGHT TIME MEDS HE GROWLED AND SAID, "NO". NO NIGHT TIME MEDS WERE ADMIN. AND CHARGE NURSE, Marek BATISTA RN INFORMED OF SITUATION. WILL ALSO INFORM WHEN SHE ARRIVES.
--- NOTE | 2017-03-03 22:30 | NUR ---
HERE AND SHE REPORTS SHE HAS BEEN HERE FOR APPROX. 30 MIN. INFORMED AND HOW PT. ACTED WHEN I WAS TRYING TO GIVE HIM HIS NIGHT TIME MEDS. REPORTS THAT TODAY HE CURSED AT HER AND A NURSE. STATES THAT HE HAS NEVER DONE THAT AND THAT HIS MIND IS MIXED UP AND HIS "COGNITION ISN'T WHAT IT SHOULD BE". INSTRUCTED THAT IF PT. SHOULD WAKE UP SHE NEEDS TO GET HIM TO BREATH DEEPLY AND COUGH HARD PT. CAN BECAUSE OF THE FLUID I HEARD DURING MY ASSESSMENT TODAY. SAID SHE KNOWS ABOUT THE FLUID AND THEY CAN JUST SUCK IT OUT OF HIM. INFORMED THAT PT. FIRST HAD TO COUGH IT UP AND GET IT INTO HIS MOUTH FOR THAT TO HAPPEN. STATED, "OH, I DIDN'T KNOW THAT". WILL HERE FOR THE NIGHT. WILL CONTINUE TO MONITOR PT.
--- NOTE | 2017-03-03 23:27 | NUR ---
PT. IN BED LYING ON HIS LEFT SIDE WITH EYES CLOSED AND RESP. EVEN. CARBAJAL TO BDS WITHOUT PROBLEMS. ASLEEP IN ROOM NEXT TO PT. CALL LIGHT WITHIN REACH.
--- NOTE | 2017-03-04 03:08 | NUR ---
PT. IN BED LYING ON HIS LEFT SIDE WITH EYES CLOSED AND RESP. EVEN. ASLEEP IN CHAIR NEXT TO PTIshmael CARBAJAL TO BSD WITHOUT PROBLEMS AND HIS CALL LIGHT IS WITHIN REACH.
[2017-03-04 07:14] LABS: BASOPHILS 0 % (0-2); EOSINOPHILS 0 % (0-7); HEMATOCRIT 33.1 % (42.0-54.0); HEMOGLOBIN 10.3 g/dL (13.5-17.5); IMMATURE GRANULOCYTES 0.6 % (0-5); LYMPHOCYTES 1.7 % (15-50); MCH 29.9 pg (26.0-34.0); MCHC 31.1 g/dL (31.0-37.0); MCV 95.9 fL (80.0-100.0); MEAN PLATELET VOLUME 8.9 fL (7.4-10.4); MONOCYTES 1.6 % (2-11); NEUTROPHILS 96.1 % (40-80); PLATELET COUNT 351 10x3/uL (130-400); RBC 3.45 10x6/uL (4.20-6.10); RDW 16.8 % (11.5-14.5); WBC 28.7 10x3/uL (4.8-10.8)
[2017-03-04 07:19] LABS: CALC OSMOLALITY 292 mosm/kg (275-300); CALCIUM 8.2 mg/dL (8.5-10.1); CARBON DIOXIDE 27.4 mmol/L (21.0-32.0); CHLORIDE - SERUM 108 mmol/L (98-107); GLUCOSE 160 mg/dL (74-106); POTASSIUM - SERUM 4.6 mmol/L (3.5-5.1); SODIUM 142 mmol/L (136-145); UREA NITROGEN 31 mg/dL (7-18); eGFR NON AFRICAN AMERICAN 76 mL/min (90-120)
--- NOTE | 2017-03-04 07:49 | NUR ---
RESTING QUIETLY IN BED. NO S/S DISTRESS OR NEEDS. CALL LIGHT IN REACH
[2017-03-04 08:12] VITALS: BP 143/52
--- NOTE | 2017-03-04 15:34 | NUR ---
PT RESTING IN BED WITH EYES OPEN CALL LIGHT IN REACH WILL MONITER
--- NOTE | 2017-03-04 16:17 | NUR ---
PATIENT ADMITTED TO REHAB FROM ACUTE FLOOR. PATIENT RESIDES AT [facility] AND WILL RETURN THERE. DR. OCONNELL IS PATIENT PCP. HE HAS ALL DME THAT IS NEEDED.WILL CONTINUE TO FOLLOW WITH PATIENT
--- NOTE | 2017-03-04 19:00 | NUR ---
PATIENT IN BED, RESTING QUIETLY, EYES CLOSED.
--- NOTE | 2017-03-04 21:30 | NUR ---
REMAINS IN BED, EYES CLOSED. NO APPARENT DISTRESS.
[2017-03-04 23:20] VITALS: BP 116/71
--- NOTE | 2017-03-04 23:20 | NUR ---
ATTEMPTED TO AWAKEN PATIENT. RESPONDS TO TOUCH AND VOICE, BUT ONLY MOMENTARILY. VERY SOMNOLENT, WHICH HAS BEEN REPORTED OFTEN. CLEANSED PATIENT FROM TRACE BM, CHANGED BLUE PAD AND APPLIED CALMOSEPTINE TO BUTTOCKS DECUB. HELD ALL PO MEDS PATIENT WILL NOT EVEN OPEN HIS MOUTH TO CHECK HIS TEMP. RESISTS TURNING AND ALL CARE, BUT DOES NOT AWAKEN ENOUGH TO CONVERSE, EAT, TAKE MEDS OR DRINK.
--- NOTE | 2017-03-05 00:10 | NUR ---
REMAINS IN BED, EYES CLOSED. NO DISTRESS NOTED.
--- NOTE | 2017-03-05 01:55 | NUR ---
REMAINS IN BED, EYES CLOSED. REPLACED NASAL CANNULA IN NARES PATIENT HAD TAKEN HIS NASAL CANNULA OFF. AROUSED BRIEFLY AND ATTEMPTED TO AVOID REPLACEMENT OF CANNULA BUT DRIFTED OFF IMMEDIATELY.
--- NOTE | 2017-03-05 04:00 | NUR ---
RESTING IN BED, EYES CLOSED. REEMPLACED NASAL CANNULA IN NARES AROUND 0330. HAD SOME DIFFICULTY PATIENT WAS SWATTING AT ME WITH HIS LEFT HAND WHILE I ATTEMPTED IT. OPENED EYES BRIEFLY, BUT THEN FELL BACK ASLEEP.
--- NOTE | 2017-03-05 06:20 | NUR ---
REMAINS IN BED, NOW RECEIVING R/T UPDRAFT. SEEMS A BIT MORE ALERT. OPENED EYES SPONTANEOUSLY WHILE WAS EMPTYING HIS CARBAJAL CATHETER.
[2017-03-05 07:11] VITALS: BP 150/67
--- NOTE | 2017-03-05 07:32 | NUR ---
RESTING QUIETLY IN BED. NO S/S DISTRESS NOTED. CALL LIGHT IN REACH
--- NOTE | 2017-03-05 10:26 | NUR ---
PATIENT IS VERY CONFUSED. ON A FIRST STEP MATTRESS. CALL LIGHT WITHIN REACH. KAT ALARM ON. PATIENT WILL NOT KEEP OXYGEN ON. MEDICATIONS TAKEN CRUSED IN PUDDING.
--- NOTE | 2017-03-05 12:57 | NUR ---
PATIENT IS A TOTAL ASST WITH CARE. IN ROOM, FEEDING PATINET LUNCH.
--- NOTE | 2017-03-05 14:25 | NUR ---
REQUESTED THAT PATIENT SIT UP IN CHAIR. PATIENT GOTTON UP IN WHEELCHAIR WITH LIFT. ASST OF TWO.
--- NOTE | 2017-03-05 14:45 | NUR ---
STATES THAT PATIENT WANTS BACK IN BED. THIS NURSE STATED THAT SHE WILL HELP PATIENT BACK TO BED IN A FEW MINUTES. STATED THAT SHE WOULD LIKE PATIENT TO SIT UP FOR MORE THEN TWENTY MINUTES.
--- NOTE | 2017-03-05 15:03 | NUR ---
PATIENT HELPED BACK TO BED WITH LIFT AND ASST OF THREE PEOPLE. FIRST STEP MATTRESS ON. BOTTOM CLEANED AND OINTMENT APPLED. PATIENT TURNED TO RIGHT SIDE.
--- NOTE | 2017-03-05 17:51 | NUR ---
PATIENT SAT UP 90 DEGRESS. THIS NURSE TRIED TO FEED PATIENT SUPPER. PATIENT WOULD NOT WAKE UP TO EAT. THIS NURSE TRIED TO APPLY NASAL CANULA TO NARES. PATIENT SWATTED AT THIS NURSE.
--- NOTE | 2017-03-05 19:10 | NUR ---
PATIENT SOMNOLENT/LETHARGIC. AWAKENS TO TOUCH AND CALLING HIS NAME. OPENS EYES BUT THEN IMMEDIATELY CLOSES THEM.
[2017-03-05 19:45] VITALS: BP 113/63
--- NOTE | 2017-03-05 21:05 | NUR ---
ASSESSMENT COMPLETE. NO IMPROVEMENT IN LOC, HOWEVER THIS IS NOT A NEW FINDING, BUT A RECURRENT ONE, ESPECIALLY AT NIGHT. GAVE PATIENT SCHEDULED IVP SOLU-MEDROL IVP IN RIGHT HAND AND FLUSHED SALINE LOCK. CALMOSEPTINE APPLIED. PATIENT DOES NOT EVEN AROUSE FOR FLUID INTAKE. FOLOLOWED SAME PATTERN LAST NIGHT BUT AWOKE SPONTANEOUSLY AROUND 0600 THIS AM AND WAS ABLE TO TAKE SCHEDULED MED CRUSHED IN PUDDING WELL DRINK WATER AFTERWARD. EXPECT THE SAME TO OCCUR THIS SHIFT IN AM.
--- NOTE | 2017-03-05 22:20 | NUR ---
RESTING QUIETLY IN BED, EYES CLOSED.
--- NOTE | 2017-03-05 23:01 | NUR ---
PATIENT'S SON-IN-LAW STOPPED BY. GAVE HIM A REPORT ON PATIENT. DISCUSSED WHETHER PATIENT HAS HAD A DNR ORDER IN THE PAST. VISITOR SAID HE THINKS SO, BUT WILL DISCUSS IT WITH THE FAMILY AND TRY TO GET AN ANSWER TO US IN THE AM.
--- NOTE | 2017-03-05 23:45 | NUR ---
TURNED PATIENT FROM RIGHT- TO LEFT SIDELYING POSITION @ 2315. PATIENT DID NOT STIR AT THAT TIME. REMAINS IN BED IN PARTIAL LEFT SIDELYING POSITION, WITH EYES CLOSED.
--- NOTE | 2017-03-06 02:15 | NUR ---
RESTING QUIETLY IN BED, EYES CLOSED.
--- NOTE | 2017-03-06 04:05 | NUR ---
PATIENT BEGGINING TO AWAKEN. MUMBLING AND ALTERNATELY CALLING OUT MAMA.
--- NOTE | 2017-03-06 05:10 | NUR ---
EMPTIED 475 ML FROM CATHETER DRAINAGE BAG. PATIENT NOW ALERT. REMAINS CONFUSED. CLEANSED HIS MOUTH FROM YELLOW PHLEGM HE HAD IN HIS RIGHT CHEEK. WHILE WAS DISCARDING GAUZE PAD USED FOR THE TASK. PATIENT USED HIS SHEET TO SPIT INTO. CHANGED HIS TOP SHEET. TURNED HIM TO LEFT SIDE WITH SOME RESISTANCE AND APPLIED CALMOSEPTINE OINTMENT TO HIS BUTTOCKS AND COCCYX. CHANGED THE DRESSINGS TO BLACK ESCHARS OF HIS RIGHT LATERAL MALLEOLUS AND EDGE OF LATERAL FOOT, PER CURRENT ORDERS (SEE DRESSING CHANGE P/I). GAVE PATIENT SCHEDULED IVP AND PO MEDS. AND ASSISTED HIM TO DRINK APPROX 100ML ICE WATER WHEN FINISHED. RETURNED PATIENT TO LEFT SIDELYING POSITION WITH HOB ELEVATED TO 30 DEGREES. PATIENT THEN FELL BACK TO SLEEP.
--- NOTE | 2017-03-06 05:55 | NUR ---
RESTING QUIETLY IN BED, EYES CLOSED.
--- NOTE | 2017-03-06 07:51 | NUR ---
PT IN BED WITH EYES CLOSED AND CHEST RISING. EASILY AROUSED TO VERBAL STIMULI. PT WOULD OPEN EYES AND RESPOND AND SAY I'M SLEEP AND LAY BACK DOWN. NO OTHER CONCERN NOTED AT THIS TIME. CALL LIGHT IN REACH.
--- NOTE | 2017-03-06 11:56 | NUR ---
PT IN BED WITH FAMILY AT BED SIDE. PT EASILY AROUSED BUT QUICKLY LAYS HEAD DOWN AND GOES BACK TO SLEEP. PT COMPLAINTS OF BLADDER DISCOMFORT. CATHETER ASSESSED WITH ADJUSTMENT URINE FLOW BEGAN. NO OTHER CONCERNS NOTED. CALL LIGHT IN REACH.
--- NOTE | 2017-03-06 19:15 | NUR ---
PT IN BED WITH HOB UP FOR COMOFRT. EYES CLOSED. CHEST RISING AND FALLING. BILATERAL LOWER LEG BOOTS. 1ST STEP MATTRESS. KAT ALARM. BED IN LOWEST POSITION AND CALL LIGHT WITHIN REACH.
[2017-03-06 19:26] VITALS: BP 138/69
[2017-03-06 19:30] VITALS: BP 116/78
--- NOTE | 2017-03-06 23:22 | NUR ---
PT NOT HAVING ANY URINARY OUTPT SINCE CHRISTIAN MULTANI TOOK OUT CARBAJAL CATH. WILL ATTEMPT TO REINSERT NEW CARBAJAL CATH.
--- NOTE | 2017-03-06 23:53 | NUR ---
INSERTED CARBAJAL CATH. 400 URINARY OUTPUT. PT TOLERATED PROCEDURE WELL.
[2017-03-07 00:26] LABS: APPEARANCE HAZY (CLEAR); BILIRUBIN NEGATIVE (NEGATIVE); COLOR YELLOW (YELLOW); EPITHELIAL CELLS OCC /hpf (0-5); GLUCOSE 50 mg/dL (NEGATIVE); KETONE NEGATIVE (NEGATIVE); LEUKOCYTE ESTERASE 1+ (NEGATIVE); NITRITE NEGATIVE (NEGATIVE); PROTEIN NEGATIVE (NEGATIVE); RED CELLS - URINE 0-5 /hpf (0-5); UROBILINOGEN NORMAL (NORMAL)
[2017-03-07 00:27] LABS: BACTERIA FEW /hpf (NONE SEEN)
--- NOTE | 2017-03-07 03:45 | NUR ---
PT LYING IN BED. EYES CLOSED. RESPIRATIONS EVEN AND UNLABORED. BED IN LOWEST POSITION AND CALL LIGHT WITHIN REACH.
--- NOTE | 2017-03-07 03:55 | NUR ---
RESTING IN BED WITH EYES CLOSED. NO S/S OF DISTRESSOBSERVED. IV TO LEFT HAND PATENT WITH SALINE LOCK. DRESSING INTACT WITH NO REDNESS OR SWELLING TO SITE. CARBAJAL CATHETER PLACE EARLIER THIS SHIFT DUE TO NO OUTPUT. F/C PATENT WITH CLEAR YELLOW URINE WITH SEDIMENT DRAINING TO BED SIDE DRAINAGE SYSTEM. CALL LIGHT AND OVERBED TABLE IN REACH.
--- NOTE | 2017-03-07 04:06 | NUR ---
PT YELLING OUT "MAMA"
--- NOTE | 2017-03-07 05:30 | NUR ---
PT SKIN TEAR UNDER LEFT HAND IV DRESSING. FLSUHED IV TO MAKE SURE IT WAS NOT INFILTRATED. IV FLLUSHES WELL.
--- NOTE | 2017-03-07 07:00 | NUR ---
PT IN BED WITH HOB UP FOR COMOFRT. EYES CLOSED. CHEST RISING AND FALLING. BED IN LOWEST POSITION AND CALL LIGHT WITHIN REACH.
[2017-03-07 08:00] VITALS: BP 160/91
--- NOTE | 2017-03-07 08:00 | NUR ---
PATIENT IS VERY CONFUSED. IN ROOM WITH PATIENT. HERSELF HAS SOME CONFUSION. PATIENT IS ON A FIRST STEP MATTRESS. POTUS BOOTS ON BILATERAL LEGS. PATIENT KEEPS TAKING OXYGEN OFF.
[2017-03-07 08:14] LABS: BASOPHILS 0 % (0-2); EOSINOPHILS 0 % (0-7); HEMATOCRIT 36.9 % (42.0-54.0); HEMOGLOBIN 11.4 g/dL (13.5-17.5); IMMATURE GRANULOCYTES 0.6 % (0-5); MCH 29.8 pg (26.0-34.0); MCHC 30.9 g/dL (31.0-37.0); MCV 96.6 fL (80.0-100.0); NEUTROPHILS 94.4 % (40-80); PLATELET COUNT 336 10x3/uL (130-400); RBC 3.82 10x6/uL (4.20-6.10); RDW 16.5 % (11.5-14.5); WBC 23.3 10x3/uL (4.8-10.8)
[2017-03-07 08:22] LABS: CALC OSMOLALITY 312 mosm/kg (275-300); CALCIUM 8.3 mg/dL (8.5-10.1); CARBON DIOXIDE 25.2 mmol/L (21.0-32.0); CHLORIDE - SERUM 114 mmol/L (98-107); CREATININE - SERUM 0.9 mg/dL (0.6-1.3); GLUCOSE 188 mg/dL (74-106); POTASSIUM - SERUM 4.8 mmol/L (3.5-5.1); SODIUM 151 mmol/L (136-145); UREA NITROGEN 36 mg/dL (7-18); eGFR NON AFRICAN AMERICAN 86 mL/min (90-120)
--- NOTE | 2017-03-07 12:22 | NUR ---
PATIENTS DAUGHTER IN ROOM FEEDING PATIENT LUNCH. PATIENT IS A TOTAL ASST WITH CARE.
--- NOTE | 2017-03-07 13:33 | NUR ---
DR. Felicitas ORTIZ INTO SEE PATIENT. NEW ORDERS FOR A DRN STATUS
--- NOTE | 2017-03-07 15:00 | NUR ---
PATIENT TO WEAK TO DO PHYSICAL THERAPY THIS AFTERNOON. REQUEST THAT PATIENT STAY IN BED THIS AFTERNOON. PLAN TO DISCHARGE PATIENT FROM REHAB TOMORROW.
--- NOTE | 2017-03-07 17:35 | NUR ---
THIS NURSE TRIED TO GIVE PATIENT SOME GULCERNIA. PATIENT SPIT OUT.
--- NOTE | 2017-03-07 19:55 | NUR ---
PT. IN BED WITH HOB UP FOR COMFORT AND LYING ON BACK. PODUS BOOTS ON LILLY. FEET. CARBAJAL TO BSD AND CARBAJAL TUBING KINKED UP AT STAT LOCK SITE. REMOVED KINK IN TUBING AND URINE ONLY IN TUBING SO FAR. SPOKE TO DAUGHTER, SYLVAIN, AND FAMILY IS WANTING INFO ON IN-PATIENT HOSPICE. INFORMED HER TO SPEAK WITH NAHUM IN THE MORNING. SYLVAIN SAID HER WILL BE HERE IN THE MORNING AND HE CAN TALK WITH HER.
[2017-03-07 20:07] VITALS: BP 111/83
--- NOTE | 2017-03-07 23:10 | NUR ---
PT. IN BED LYING ON HIS LEFT SIDE WITH EYES CLOSED AND RESP. EVEN. CARBAJAL TO BSD WITHOUT PROBLEMS. CALL LIGHT WITHIN REACH.
--- NOTE | 2017-03-08 03:02 | NUR ---
PT. IN BED WITH HOB UP FOR COMFORT AND IS ON A FIRST STEP MATTRESS. EYES CLOSED AND RESP. EVEN. CARBAJAL TO BSD WITHOUT PROBLEMS. CALL LIGHT WITHIN REACH.
--- NOTE | 2017-03-08 07:50 | NUR ---
LYING IN BED RESTING. PERFORMED ORAL CARE. GAVE WATER WITH SYRINGE DUE TO UNABLE TO DRINK THRU STRAW AND SWALLOW WITHOUT DIFFICULTY. CALL LIGHT IN REACH AT BEDSIDE.
[2017-03-08 08:18] VITALS: BP 101/69
--- NOTE | 2017-03-08 09:50 | NUR ---
PT LYING IN BED RESTING COMFORTABLY. ORAL CARE PERFORMED. AT BEDSIDE. HOSPICE HAS BEEN CONSULTED. HR 139 R 21 AROUSES WITH STIMULI. WILL CONTINUE TO MONITOR
--- NOTE | 2017-03-08 10:18 | NUR ---
SPOKE WITH DR. PRASAD , PATIENT POA AND HE WOULD LIKE FOR PATIENT TO HAVE A HOSPICE REFERRAL. ORDERS HAVE BEEN FAXED TO [facility] FOR IN PATIENT ADMISSION.
--- NOTE | 2017-03-08 10:30 | NUR ---
PERFORMED BED BATH AND LINEN CHANGE. REPOSITIONED TO RIGHT SIDE. PERFORMED ORAL CARE. AT BEDSIDE.
--- NOTE | 2017-03-08 12:17 | NUR ---
Nutrition Follow Up: Pt was asleep at the time of RD visit. Spoke with pt's daughter who reported that pt is not eating possibly due to sores in his mouth. She requested a pureed diet. Pt's daughter stated that pt was to be transferred to acute floor and admitted to inpatient hospice. Pt is eating 12% meal avg on a regular [facility] soft diet with thin liquids. He is receiving Glucerna TID. +BM 03/05/17. Labs reviewed - Na elevated. Meds noted including Remeron and Megace. Will change diet to regular pureed per request. RD following.
--- NOTE | 2017-03-08 12:45 | NUR ---
LYING IN BED ON BACK RESTING COMFORTABLY. PERFORMED ORAL CARE. AT BEDSIDE. HOSPICE NURSE IN ROOM EVALUATING. WILL CONTINUE TO MONITOR
--- NOTE | 2017-03-08 13:20 | NUR ---
PT CAME TO NURSES DESK AND ALERTED NURSING STAFF PT WAS NOT BREATHING. CHARGE NURSE ADRIANA RAY AND NURSE DEVELOPMENT TECHNICIAN TULIO VENTURA WENT WITH IN ROOM AND FOUND PT NOT BREATHING. I LISTENED FOR HEART SOUNDS NONE NOTED. REMOVED NASAL CANULA.
--- NOTE | 2017-03-08 13:25 | NUR ---
CALLED DR. ORTIZ TO ADVISE PT HAD PASSED AND NEEDING TO COME PRONOUNCE. DR. ORTIZ ADVISED TO HAVE ER DOCTOR TO PRONOUNCE. CALLED ER AND SPOKE TO MIMI AND SHE ADVISED DR. ORTIZ HAS TO CALL HIMSELF. LEFT FOR DR. ORTIZ.
--- NOTE | 2017-03-08 14:11 | NUR ---
AWAITING ON DR. SINCLAIR FROM ER TO COME AND PRONOUNCE PT. FAMILY AT BEDSIDE. FAMILY VOICES NO NEEDS OR CONCERNS AT THIS TIME.
--- NOTE | 2017-03-08 14:11 | NUR ---
PATIENT HAS NO VITAL SIGNS AT THIS TIME. FAMILY AT BEDSIDE.
--- NOTE | 2017-03-08 14:18 | NUR ---
DR. KINSEY PRONONCED PATIENT FAMILY AT BEDSIDE. FAMILY DOES NOT KNOW WHAT HOME OF YET. NO NEEDS VOICED.
--- NOTE | 2017-03-08 14:31 | NUR ---
CALLED [facility] AND LEFT VM PER AUTOMATED SYSTEM SINCE OVER AGE OF 75 DO NOT HAVE TO WAIT FOR REFERENCE NUMBER TO RELEASE TO HOME AND THEY WILL CALL BACK WITH ADDITIONAL QUESTIONS AND A REFERENCE NUMBER.
--- NOTE | 2017-03-08 15:19 | NUR ---
PATIENT HAS , FAMILY AT BEDSIDE.
--- NOTE | 2017-03-08 15:35 | NUR ---
CHARGE NURSE ADRIANA RAY CALLED [facility] AND SPOKE TO BRANDIE. BRANDIE ADVISED SHE WOULD GET SOMEONE DISPATCH TO COME GREEN CH[employer] WORKER PT.
--- NOTE | 2017-03-08 17:08 | NUR ---
PT STILL AT BEDSIDE AWAITING FOR HOME TO ARRIVE.
--- NOTE | 2017-03-08 17:50 | NUR ---
SEBASTIAN SINGH FROM [facility] RECIEVED PT BODY TO TRANSPORT TO HOME. ASSISTED SEBASTIAN IN MOVING PT TO STRETCHER FOR TRANSPORT. ESCORTED SEBASTIAN TO BACK LOADING DOCK.
--- NOTE | 2017-03-09 17:20 | RHP ---
PATIENT: LAMBERTO MORA MEDICAL RECORD: [id number] ACCOUNT: [id number] LOCATION:[facility]1112 : 37 ADMISSION DATE: 02/25/17 REHABILITATION HISTORY AND PHYSICAL EXAMINATION POST ADMISSION PHYSICIAN EXAMINATION ADMITTING DIAGNOSIS: Critical illness myopathy. HISTORY OF PRESENT ILLNESS: The patient is admitted to inpatient rehab secondary to critical illness myopathy. The patient is an 82-year-old gentleman with a significant history of peripheral vascular disease, admitted for right lower extremity ischemia pain and foot wound. He required an arteriogram with arthrectomy and duraplasty skin on February 17. 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 He was also noted to have pneumonia in the past, been followed by pulmonary during his acute hospital stay. He had increased pain in his right lower extremity and foot, but has decreased since the surgery, has noted a pressure areas to his lateral right ankle and foot. He is currently receiving O2 two liters via nasal cannula, has a High catheter and his p.o. intake has increased since admit to the hospital. He has a positive urine culture. He is receiving IV antibiotics and updraft. He resides at [facility], but he has a recent decline due to increased pain to his right lower extremity, was able to self-propel with his wheelchair, ambulate with assistance with use of a rolling walker and was set up from assist with ADLs. He is noted proximal weakness. He has had minimal to max assist for ADLs and max assist to total assist for mobility. He and his plan returning back to [facility], hopefully, get his prior level of functioning better. COMORBIDITIES: Include COPD exacerbation, dysphagia, aspiration pneumonia, gram-negative UTI, peripheral arterial disease, AFib, hypothyroidism, coronary artery disease, metastatic prostate cancer, debility, ischemic ulcer to his foot, atherosclerosis, dementia, anemia, hypothyroidism and critical illness myopathy. PAST MEDICAL HISTORY: Significant for CVA, allergies, hard of hearing, [place], AFib. He has had prostate cancer, dementia, anxiety, hypothyroidism and coronary artery disease. PAST SURGICAL HISTORY: Includes stent/angioplasty. ALLERGIES: ATIVAN AND HONEY BEE VENOM. CURRENT MEDICATIONS: He is on a Duragesic patch at this time 25 mcg. He is on Calmoseptine as needed, polyethylene glycol 17 grams in 8 ounce of water daily, multivitamin daily, Megace 400 mg daily, Synthroid 25 mcg daily, Levaquin 500 mg IV for a total of 4 doses. He is on Atrovent and ipratropium bromide updrafts. He is on Lovenox 40 mg subQ daily, digoxin 0.125 mg daily, Plavix 75 mg daily, Brovana 15 mcg b.i.d. He is on Zofran p.r.n. nausea and vomiting. He is on Solu-Medrol 40 mg IV q.8 hours, melatonin 6 mg q.h.s. p.r.n., Xopenex as needed for shortness of breath, [place] 5/325 as needed for pain, Robitussin-DM as needed for cough, Pepcid 20 mg b.i.d., Colace 100 mg b.i.d., clindamycin 600 mg IV q.6 hours. He is on Dulcolax suppositories p.r.n., amiodarone 200 mg b.i.d. HABITS: No current alcohol or tobacco use. HISTORY AND PHYSICAL [id number] LAMBERTO MORA FAMILY HISTORY: Noncontributory. SOCIAL HISTORY: The patient hopes to return back home in [facility]. REVIEW OF SYSTEMS: Unable to obtain secondary to his dementia. GENERAL: A well-developed, slightly thin Cuban appearing gentleman, in no acute distress. HEENT: Normocephalic and atraumatic. Mucosa moist. NECK: Supple. No lymphadenopathy. LUNGS: Clear in upper [place], although he does have decreased breath sounds in the bases. CARDIOVASCULAR: With an irregular rate and rhythm. ABDOMEN: Benign. EXTREMITIES: Consistent with ulceration to his foot. NEUROLOGIC: Consistent with dementia. LABORATORY DATA: Admit lab shows a white count of 17.5, H&H 8.9 and 28.5 and platelet count is 333. Sodium 139, potassium 4.7, BUN and creatinine of 37 and 1.2, and blood sugar is noted to be 169. ASSESSMENT: This is an 82-year-old gentleman, who presents to rehab with a working diagnosis of critical illness myopathy. The patient has potential to make improvement. We will institute the following multidisciplinary therapies including to, but not limited to physical, occupational, respiratory, speech, nutritional services, prosthetics and orthotics. Given his competitions risk for more complications, rehabilitation services cannot be provided at a lower level of care such as a correction facility. PLAN: 1. Admit to [facility] rehab for intensive inpatient therapy to include the following disciplines: A. Physical therapy to improve gait, all transfer skills and bed mobility to a modified independent level. B. Occupational therapy to improve activities of daily living to a modified independent level. C. Case management to assist with discharge planning and placement options. D. Nutrition to assist with nutritional needs. E. Rehabilitation nursing to assist and monitor the patient underlying medical conditions and to assist with any type of bowel or bladder management. 2. The patient's current medication and medical care will be continued. 3. We will do a wound care to his foot. 4. We will discuss this patient during care team staff meeting this week. TRANSINT:[id number] Voice Confirmation ID: [id number] DOCUMENT ID: [id number] SANTOSH notes whether there has been none or any medical/functional change since admission: - SANTOSH attests patient continues to be appropriate for IRF: - HISTORY AND PHYSICAL [id number] LAMBERTO MORA SCOTT MD at 1720 CC: [id number] DICTATION DATE: 02/26/17 161 SOX ANALYST: 02/26/17 1859 DIS IN 03/08/17 [facility] [address] [id number]
== END 2017-03-08 18:09 | DRG 91 ==
LOC: D.REHAB 15:24
PROVIDERS: ADMIT Emergency Medicine
DX: G72.81 Critical illness myopathy (principal); J69.0 Pneumonitis due to inhalation of food and vomit; J44.1 Chronic obstructive pulmonary disease with (acute) exacerbation; N39.0 Urinary tract infection, site not specified; C79.51 Secondary malignant neoplasm of bone; R13.10 Dysphagia, unspecified; Z66 Do not resuscitate; I73.9 Peripheral vascular disease, unspecified; I48.91 Unspecified atrial fibrillation; E03.9 Hypothyroidism, unspecified; C61 Malignant neoplasm of prostate; I25.10 Atherosclerotic heart disease of native coronary artery without angina pectoris; R53.81 Other malaise; F03.90 Unspecified dementia, unspecified severity, without behavioral disturbance, psychotic disturbance, mood disturbance, and anxiety; D64.9 Anemia, unspecified; L89.899 Pressure ulcer of other site, unspecified stage